=== PATIENT | female | born 1975 | race Caucasian/White ===

== ENCOUNTER 2016-11-16 19:12 | Inpatient (IN) | payer MEDICAID ==
[2016-11-16 19:57] LABS: BASO # 0.1 K/uL (0.0-0.2); BASO % 1.2 % (0.0-2.0); EOS # 0.1 K/uL (0.0-0.7); EOS % 1.1 % (0.0-4.0); HEMATOCRIT 22.1 % (34.0-47.0); LYMPH # 1.8 K/uL (1.0-4.3); MEAN CELL VOLUME 54.8 fL (81.0-99.0); MEAN CORPUSCULAR HEMOGLOBIN 14.9 pg (27.0-31.0); MEAN CORPUSCULAR HGB CONC 27.3 g/dL (33.0-37.0); MEAN PLATELET VOLUME 8.7 fL (7.2-11.7); MONO # 0.5 K/uL (0.0-0.8); MONO % 5.4 % (0.0-10.0); NRBC % 0.2 % (0.0-2.0); RED CELL DISTRIBUTION WIDTH 21.9 % (11.5-14.5); WHITE BLOOD COUNT 9.2 K/uL (4.8-10.8)
[2016-11-16 20:06] LABS: CHLORIDE 99 mmol/L (98-107)
[2016-11-16 20:07] LABS: POTASSIUM 3.9 mmol/L (3.6-5.2); SODIUM 139 mmol/L (132-148)
[2016-11-16 20:09] LABS: ALB/GLOB RATIO 1.2 (1.0-2.1); ALKALINE PHOSPHATASE 88 U/L (38-126); ALT/SGPT 48 U/L (9-52); AST/SGOT 32 U/L (14-36); BILIRUBIN,TOTAL 0.6 mg/dL (0.2-1.3); BLOOD UREA NITROGEN 12 mg/dL (7-17); CALCIUM 8.8 mg/dl (8.6-10.4); CARBON DIOXIDE 27 mmol/L (22-30); GFR AFRICAN-AMERICAN > 60; GLUCOSE,RANDOM 149 mg/dL (65-105); TOTAL PROTEIN 7.4 g/dL (6.3-8.3)
[2016-11-16 20:10] LABS: MAGNESIUM 1.8 mg/dL (1.6-2.3)
--- NOTE | 2016-11-16 20:14 | C.PDOC ---
Time Seen by Provider: 11/16/16 19:30 Chief Complaint (Nursing): Dizziness/Lightheaded History Per: Patient Onset/Duration Of Symptoms: Days (3) Current Symptoms Are (Timing): Still Present Current Symptoms: Generalized weakness Associated Symptoms Preceding Syncopal Episode: Lightheadedness, Worse With Standing Possible Causative Factor(s): Lightheaded W/Exertion Fall Associated With With Symptoms: No Severity: Moderate Additional History Per: Prior Records - Symptoms Of CVA Current Coumadin Use?: No Recent Head Trauma: No Past Medical History Reviewed: Historical Data, Nursing Documentation, Vital Signs Vital Signs: Last Vital Signs Temp 98.3 F 11/16/16 19:14 Pulse 97 H 11/16/16 19:40 Resp 20 11/16/16 19:40 BP 132/72 11/16/16 19:40 Pulse Ox 100 11/16/16 20:32 - Medical History PMH: Anemia, HTN, Mitral Valve Prolapse Other PMH: Marfan Syndrome Surgical History: Back Surgery (for Scoliosis), Cholecystectomy Other Surgeries: Hysterectomy - [facility] Procedures PACKED CELL TRANSFUSION (12/30/14) TRANSFUSE NONAUT RED BLOOD CELLS IN PERIPH VEIN, PERC (05/20/15) Family History: States: Unknown Family Hx - Social History Hx Tobacco Use: No Hx Alcohol Use: No Hx Substance Use: No - Immunization History Hx Tetanus Toxoid Vaccination: No Hx Influenza Vaccination: Yes Hx Pneumococcal Vaccination: No Review Of Systems Except As Marked, All Systems Reviewed And Found Negative. Constitutional: Positive for: Weakness, Malaise. Negative for: Fever Cardiovascular: Positive for: Light Headedness. Negative for: Chest Pain Respiratory: Positive for: SOB with Excertion Gastrointestinal: Positive for: Nausea. Negative for: Vomiting, Diarrhea, Melena, Hematochezia, Hematemesis Genitourinary: Negative for: Dysuria, Vaginal Bleeding Musculoskeletal: Negative for: Neck Pain Skin: Negative for: Rash Neurological: Negative for: Weakness, Numbness Physical Exam - Physical Exam Appears: No Acute Distress Skin: Warm, Dry, Pale Head: Atraumatic, Normacephalic Eye(s): bilateral: PERRL, EOMI, Conjunctiva Pale Oral Mucosa: Moist Neck: Normal ROM, Supple Cardiovascular: Rhythm Regular Respiratory: Normal Breath Sounds, No Accessory Muscle Use Gastrointestinal/Abdominal: Soft, No Tenderness Rectal: Heme Negative, No Mass, No Tenderness Back: No CVA Tenderness, Other (Scoliosis) Extremity: Normal ROM, No Pedal Edema, No Calf Tenderness Neurological/Psych: Oriented x3, Normal Motor, Normal Sensation ED Course And Treatment - Laboratory Results Result Diagrams: 11/16/16 19:53 11/16/16 19:53 Lab Interpretation: Abnormal Interpretation Of Abnormal: Severe anemia. ECG: Interpreted By Me, Viewed By Me ECG Rhythm: Sinus Rhythm, Nonspecific Changes Rate From EC O2 Sat by Pulse Oximetry: 100 Pulse Ox Interpretation: Normal - Radiology CXR: Interpreted by Me, Viewed By Me CXR Interpretation: Yes: No Acute Disease Disposition Discussed With : Hardeep Gongora Comment: He accepted pt on his service and gave admitting orders to the nurse. Doctor Will See Patient In The: Hospital Counseled Patient/Family Regarding: Studies Performed, Diagnosis - Disposition Disposition: HOSPITALIZED Disposition Time: 20:39 Condition: FAIR - Clinical Impression Clinical Impression: Symptomatic anemia
[2016-11-16 20:27] LABS: INR 1.1
[2016-11-16 20:32] LABS: FREE T4 0.86 ng/dL (0.78-2.19)
[2016-11-16 20:46] LABS: THYROID STIMULATING HORMONE 1.89 mIU/L (0.46-4.68)
[2016-11-16] MEDS ORDERED: Oxycodone/Acetaminophen 5/325 mg Tab PO PRN (20:46)
[2016-11-16 22:24] VITALS: RESP 20
--- NOTE | 2016-11-17 08:25 | RAD ---
PROCEDURE: CHEST RADIOGRAPH, 1 VIEW HISTORY: SOB COMPARISON: Chest radiographs 12/30/2014 FINDINGS: LUNGS: Clear. PLEURA: No pneumothorax or pleural fluid seen. CARDIOVASCULAR: Normal. OSSEOUS STRUCTURES: Scoliotic thoracic spinal deformity appears stable including a solitary stabilizing posterior donny. VISUALIZED UPPER ABDOMEN: Normal. OTHER FINDINGS: None. IMPRESSION: No acute cardiopulmonary is appreciated or significant interval change.
[2016-11-17] MEDS: Ferric Sodium Gluconat Complex 62.5 mg/5 ml Vial IVPB SCH (09:52)
[2016-11-17] MEDS: Pantoprazole 40 mg EC Tab PO SCH (09:53)
[2016-11-17] MEDS ORDERED: Pantoprazole 40 mg EC Tab PO SCH (10:00)
[2016-11-17 11:06] LABS: BASO # 0.1 K/uL (0.0-0.2); BASO % 0.6 % (0.0-2.0); EOS # 0.1 K/uL (0.0-0.7); EOS % 0.8 % (0.0-4.0); LYMPH # 1.9 K/uL (1.0-4.3); LYMPH % 22.7 % (20.0-40.0); MEAN CORPUSCULAR HEMOGLOBIN 17.7 pg (27.0-31.0); MEAN CORPUSCULAR HGB CONC 29.6 g/dL (33.0-37.0); MEAN PLATELET VOLUME 8.5 fL (7.2-11.7); MONO # 0.5 K/uL (0.0-0.8); MONO % 5.9 % (0.0-10.0); NRBC % 0.2 % (0.0-2.0); RED CELL DISTRIBUTION WIDTH 28.9 % (11.5-14.5); WHITE BLOOD COUNT 8.5 K/uL (4.8-10.8)
[2016-11-17 11:09] LABS: MEAN CELL VOLUME 59.7 fL (81.0-99.0)
[2016-11-17 11:11] LABS: CHLORIDE 100 mmol/L (98-107); SODIUM 136 mmol/L (132-148)
[2016-11-17 11:13] LABS: AST/SGOT 25 U/L (14-36); BILIRUBIN,TOTAL 0.7 mg/dL (0.2-1.3); CARBON DIOXIDE 25 mmol/L (22-30); GFR AFRICAN-AMERICAN > 60
[2016-11-17 11:14] LABS: ALB/GLOB RATIO 1.1 (1.0-2.1); ALKALINE PHOSPHATASE 80 U/L (38-126); ALT/SGPT 41 U/L (9-52); BLOOD UREA NITROGEN 11 mg/dL (7-17); CALCIUM 8.5 mg/dl (8.6-10.4); GLUCOSE,RANDOM 96 mg/dL (65-105); TOTAL PROTEIN 6.8 g/dL (6.3-8.3)
--- NOTE | 2016-11-17 11:19 | CP.PCM.PN ---
Subjective - Date & Time of Evaluation Date of Evaluation: 11/17/16 Time of Evaluation: 07:10 - Subjective Subjective: PGY-[address] Gongora Patient see and examined at bedside. Patient received 2 units of PRBC overnight , stating to be feel better than when she first came in. Patient is tolerating diet well. She denies having headache, dizziness, fever, chills, shortness of breath, chest pain, nausea, vomiting, bloody BM, or hematuria. Objective - Vital Signs/Intake and Output Vital Signs (last 24 hours): Temp Pulse Resp BP Pulse Ox 98.1 F 88 20 138/72 96 11/17/16 08:25 11/17/16 08:25 11/17/16 08:25 11/17/16 08:25 11/17/16 08:25 Intake and Output: 11/17/16 11/17/16 06:59 18:59 Intake Total 1175 Balance 1175 - Medications Medications: Current Medications Ferric Sodium Gluconate Complex (Ferrlecit) 125 mg IVPB DAILY [facility] Stop: 11/25/16 10:01 Last Admin: 11/17/16 09:52 Dose: 125 mg Metoprolol Tartrate (Lopressor) 50 mg PO BID [facility] Oxycodone/Acetaminophen (Percocet 5/325 Mg Tab) 1 tab PO Q4 PRN PRN Reason: Pain, moderate (4-7) Stop: 11/19/16 20:47 Pantoprazole Sodium (Protonix Ec Tab) 40 mg PO DAILY [facility] Last Admin: 11/17/16 09:53 Dose: 40 mg - Labs Labs: 11/17/16 10:50 11/17/16 10:50 PT 12.8 SECONDS (9.7-12.2) H 11/16/16 20:09 INR 1.1 11/16/16 20:09 APTT 25 SECONDS (21-34) 11/16/16 20:09 - Constitutional Appears: Well, Non-toxic, No Acute Distress - Head Exam Head Exam: ATRAUMATIC, NORMAL INSPECTION - Eye Exam Eye Exam: Normal appearance, PERRL Pupil Exam: PERRL - Neck Exam Neck Exam: Normal Inspection - Respiratory Exam Respiratory Exam: Clear to Ausculation Bilateral, NORMAL BREATHING PATTERN. absent: Wheezes, Respiratory Distress - Cardiovascular Exam Cardiovascular Exam: REGULAR RHYTHM, +S1, +S2 - GI/Abdominal Exam GI & Abdominal Exam: Soft, Normal Bowel Sounds. absent: Tenderness - Extremities Exam Extremities Exam: Normal Capillary Refill - Neurological Exam Neurological Exam: Alert, Awake, Oriented x3 - Psychiatric Exam Psychiatric exam: Normal Affect, Normal Mood - Skin Skin Exam: Normal Color, Warm Assessment and Plan - Assessment and Plan (Free Text) Assessment: Anemia -Heme/onc consult, Dr. Roberson help appreciated -s/p 2 units of PRBC transfusion -Hgb 7.7 -Occult blood stool negative -Pending iron studies, retic count, protein electrophresis, UA -Continue Ferrlecit -Monitor vitals -Follow up CBC HTN -Metoprolol 50mg po BID Prophylactic measures -Protonix -SCD Case discussed with Dr. Gongora. Management per Dr. Gongora.
[2016-11-17 12:22] LABS: FOLATE 7.4 ng/mL
--- NOTE | 2016-11-17 13:53 | CP.PCM.CON ---
<Vince Alvarenga - Last Filed: 11/17/16 14:09> History of Present Illness - History of Present Illness History of Present Illness: PGY3 on heme/onc Dr. Roberson service: 41F PMHx Marfan's syndrome, scoliosis, MVP, aortic valve dilation, acid reflux and anemia presented due to fatigue and lightheadedness. Patient has history of menorrhagia secondary to fibroids, and had hysterectomy on 04/2016. Patient also had unremarkable EGD/colonoscopy in 2015. Currently s/p 2U pRBC transfusion and has no complaints at the moment. Patient up to date with mammogram. PMHx: see above PSHx: hysterectomy 04/2016 FMHx: mother has cervical CA, aunt has breast CA Social: denied ETOH, drugs or tobacco NKDA Review of Systems - Constitutional Constitutional: Weakness - EENT Eyes: absent: Loss of Vision Nose/Mouth/Throat: absent: Neck Pain - Breasts Breasts: absent: Pain, Swelling - Cardiovascular Cardiovascular: absent: Chest Pain, Dyspnea, Syncope - Respiratory Respiratory: absent: Dyspnea - Gastrointestinal Gastrointestinal: absent: Abdominal Pain, Constipation, Hematemesis, Vomiting - Genitourinary Genitourinary: absent: Dysuria - Integumentary Integumentary: absent: Dry Skin - Neurological Neurological: absent: Weakness Past Patient History - Infectious Disease Hx of Infectious Diseases: None - Past Medical History & Family History Past Medical History?: Yes - Past Social History Smoking Status: Former Smoker - CARDIAC Hx Heart Attack: Yes Hx Heart Murmur: Yes Hx Hypertension: Yes Hx Mitral Valve Prolapse: Yes - PULMONARY Hx Respiratory Disorders: No Hx Sleep Apnea: Yes - NEUROLOGICAL Hx Neurological Disorder: No - HEENT Hx HEENT Problems: No - ENDOCRINE/METABOLIC Hx Endocrine Disorders: Yes Other/Comment: Marfan's syndrome - HEMATOLOGICAL/ONCOLOGICAL Hx Anemia: Yes - INTEGUMENTARY Hx Dermatological Problems: No - MUSCULOSKELETAL/RHEUMATOLOGICAL Hx Musculoskeletal Disorders: Yes Hx Falls: Yes (2016) Other/Comment: scoliosis - GASTROINTESTINAL Hx Gastrointestinal Disorders: Yes Hx Gastroesophageal Reflux: Yes - GENITOURINARY/GYNECOLOGICAL Hx Genitourinary Disorders: No - PSYCHIATRIC Hx Substance Use: No - SURGICAL HISTORY Hx Cholecystectomy: Yes Hx Hysterectomy: Yes - ANESTHESIA Hx Anesthesia: Yes Hx Anesthesia Reactions: No Meds Allergies/Adverse Reactions: Allergies Allergy/AdvReac Type Severity Reaction Status Date / Time No Known Allergies Allergy Verified 05/20/15 15:33 - Medications Medications: Current Medications Ferric Sodium Gluconate Complex (Ferrlecit) 125 mg IVPB DAILY [facility] Stop: 11/25/16 10:01 Last Admin: 11/17/16 09:52 Dose: 125 mg Metoprolol Tartrate (Lopressor) 50 mg PO BID [facility] Oxycodone/Acetaminophen (Percocet 5/325 Mg Tab) 1 tab PO Q4 PRN PRN Reason: Pain, moderate (4-7) Stop: 11/19/16 20:47 Pantoprazole Sodium (Protonix Ec Tab) 40 mg PO DAILY [facility] Last Admin: 11/17/16 09:53 Dose: 40 mg Physical Exam - Constitutional Appears: Non-toxic, No Acute Distress - Head Exam Head Exam: NORMAL INSPECTION, NORMOCEPHALIC - Eye Exam Eye Exam: Normal appearance Pupil Exam: NORMAL ACCOMODATION - ENT Exam ENT Exam: Mucous Membranes Moist - Respiratory Exam Respiratory Exam: Clear to Auscultation Bilateral, NORMAL BREATHING PATTERN - Cardiovascular Exam Cardiovascular Exam: REGULAR RHYTHM, +S1, +S2. absent: Gallop, Rubs - GI/Abdominal Exam GI & Abdominal Exam: Normal Bowel Sounds - Neurological Exam Neurological exam: Alert, Oriented x3 - Psychiatric Exam Psychiatric exam: Normal Mood Results - Vital Signs Recent Vital Signs: Last Vital Signs Temp 98.1 F 11/17/16 08:25 Pulse 88 11/17/16 08:25 Resp 20 11/17/16 08:25 BP 138/72 11/17/16 08:25 Pulse Ox 96 11/17/16 08:25 - Labs Result Diagrams: 11/17/16 10:50 11/17/16 10:50 Labs: Laboratory Results - last 24 hr 11/17/16 11/17/16 11/17/16 10:50 10:50 10:50 WBC 8.5 RBC 4.35 Hgb 7.7 L Hct 26.0 L MCV 59.7 L D MCH 17.7 L MCHC 29.6 L RDW 28.9 H Plt Count 200 MPV 8.5 Neut % (Auto) 70.0 Lymph % (Auto) 22.7 Routt % (Auto) 5.9 Eos % (Auto) 0.8 Baso % (Auto) 0.6 Neut # 5.9 Lymph # 1.9 Routt # 0.5 Eos # 0.1 Baso # 0.1 Retic Count 3.0 H Sodium 136 Potassium 4.0 Chloride 100 Carbon Dioxide 25 Anion Gap 15 BUN 11 Creatinine 0.5 L Est GFR ( Amer) > 60 Est GFR (Non-Af Amer) > 60 Random Glucose 96 Calcium 8.5 L Ferritin 3.9 Total Bilirubin 0.7 AST 25 ALT 41 Alkaline Phosphatase 80 Total Protein 6.8 Albumin 3.6 Globulin 3.2 Albumin/Globulin Ratio 1.1 Vitamin B12 492 Folate 7.4 Assessment & Plan - Assessment and Plan (Free Text) Assessment: Anemia Likely secondary to iron deficiency anemia, with history of heavy menstruation. S/P 2U pRBC transfusion. Continue IV Ferrlecit. Will transfuse another unit today. F/U the rest of anemia workup. Continue monitoring. <Sumanth Roberson - Last Filed: 11/18/16 19:34> Results - Vital Signs Recent Vital Signs: Last Vital Signs Temp 98.4 F 11/18/16 01:43 Pulse 70 11/18/16 01:43 Resp 20 11/18/16 01:43 BP 132/87 11/18/16 01:43 Pulse Ox 97 11/18/16 01:43 - Labs Result Diagrams: 11/18/16 07:04 11/17/16 10:50 Labs: Laboratory Results - last 24 hr 11/17/16 11/18/16 13:46 07:04 WBC 8.9 RBC 5.02 Hgb 9.1 L Hct 30.6 L MCV 61.0 L MCH 18.1 L MCHC 29.6 L RDW 29.6 H Plt Count 203 MPV 9.1 Neut % (Auto) 68.8 Lymph % (Auto) 23.9 Routt % (Auto) 5.4 Eos % (Auto) 1.5 Baso % (Auto) 0.4 Neut # 6.1 Lymph # 2.1 Routt # 0.5 Eos # 0.1 Baso # 0.0 Total Protein (PEP) 7.0 Assessment & Plan - Assessment and Plan (Free Text) Assessment: Pt seen and examined, agree with residents consult with addition. 41 year old female with a history of uterine fibroids s/p hysterectomy, admitted with symptomatic anemia. Work up consistent with iron deficiency. Agree with transfusion support and will start IV iron. Rule out occult GI blood loss. Thank you for this interesting consult.
[2016-11-17 14:07] LABS: IRON 62 ug/dL (37-170)
[2016-11-17 16:05] VITALS: O2SAT 97
[2016-11-17 20:38] VITALS: PULSE 70
--- NOTE | 2016-11-17 22:27 | HP ---
HISTORY OF PRESENT ILLNESS: A 41-year-old female in the hospital with complaint of weakness, fatigue, tiredness. The patient was found to have severe anemia. History of anemia in the past, hysterectomy. PHYSICAL EXAMINATION: GENERAL: The patient is awake, alert, and oriented. VITAL SIGNS: Temperature 98, pulse 90. HEENT: Within normal limits. NECK: Supple. CHEST: Symmetrical. HEART: Regular. ABDOMEN: Soft. EXTREMITIES: No edema. IMPRESSION: Anemia. The patient will get blood transfusion and hematology consult. Hardeep Gongora MD
[2016-11-18 01:43] VITALS: BP 132/87; TEMP 98.4
[2016-11-18 07:16] LABS: EOS # 0.1 K/uL (0.0-0.7); MEAN CORPUSCULAR HEMOGLOBIN 18.1 pg (27.0-31.0); MONO # 0.5 K/uL (0.0-0.8); NRBC % 0.2 % (0.0-2.0)
[2016-11-18 07:34] LABS: BASO % 0.4 % (0.0-2.0); EOS % 1.5 % (0.0-4.0); HEMATOCRIT 30.6 % (34.0-47.0); LYMPH # 2.1 K/uL (1.0-4.3); LYMPH % 23.9 % (20.0-40.0); MEAN CORPUSCULAR HGB CONC 29.6 g/dL (33.0-37.0); MEAN PLATELET VOLUME 9.1 fL (7.2-11.7); MONO % 5.4 % (0.0-10.0); RED CELL DISTRIBUTION WIDTH 29.6 % (11.5-14.5); WHITE BLOOD COUNT 8.9 K/uL (4.8-10.8)
[2016-11-18] MEDS: Pantoprazole 40 mg EC Tab PO SCH (10:04)
[2016-11-18] MEDS: Ferric Sodium Gluconat Complex 62.5 mg/5 ml Vial IVPB SCH (10:04)
--- NOTE | 2016-11-18 10:27 | CP.PCM.PN ---
Subjective - Date & Time of Evaluation Date of Evaluation: 11/18/16 Time of Evaluation: 10:26 - Subjective Subjective: PT SEEN BY DR. RYAN DURING ROUNDS. PER DR. RYAN, D/C PT HOME TODAY. PT TO CONTINUE FESOL AT HOME--ALREADY TAKING AT HOME. TO F/U WITH DR. RYAN AND DR. PEREZ IN THEIR OFFICES WITHIN 2 WEEKS. NO FURTHER ORDERS. Objective - Vital Signs/Intake and Output Vital Signs (last 24 hours): Temp Pulse Resp BP Pulse Ox 98.4 F 70 20 132/87 97 11/18/16 01:43 11/18/16 01:43 11/18/16 01:43 11/18/16 01:43 11/18/16 01:43 Intake and Output: 11/18/16 11/18/16 06:59 18:59 Intake Total 1030 Balance 1030 - Medications Medications: Current Medications Ferric Sodium Gluconate Complex (Ferrlecit) 125 mg IVPB DAILY [facility] Stop: 11/25/16 10:01 Last Admin: 11/18/16 10:04 Dose: 125 mg Metoprolol Tartrate (Lopressor) 50 mg PO BID [facility] Last Admin: 11/18/16 10:04 Dose: 50 mg Oxycodone/Acetaminophen (Percocet 5/325 Mg Tab) 1 tab PO Q4 PRN PRN Reason: Pain, moderate (4-7) Stop: 11/19/16 20:47 Pantoprazole Sodium (Protonix Ec Tab) 40 mg PO DAILY [facility] Last Admin: 11/18/16 10:04 Dose: 40 mg - Labs Labs: 11/18/16 07:04 11/17/16 10:50 PT 12.8 SECONDS (9.7-12.2) H 11/16/16 20:09 INR 1.1 11/16/16 20:09 APTT 25 SECONDS (21-34) 11/16/16 20:09
[2016-11-20 11:03] LABS: BETA 1 GLOBULIN 0.5 g/dL (0.4-0.6); BETA 2 GLOBULIN 0.5 g/dL (0.2-0.5); GAMMA GLOBULIN 1.3 g/dL (0.8-1.7)
--- NOTE | 2016-11-28 20:05 | CARD ---
APPROVED REPORT EKG Measurement Heart [id number] <Conclusion> Normal sinus rhythm T wave abnormality, consider anterior ischemia Prolonged QT Abnormal ECG
== END 2016-11-18 02:45 | disposition home or self-care (01) | DRG 395 ==
LOC: C.ER 19:12 → C.9E 20:41 → C.3T 21:06
PROVIDERS: ADMIT Internal Medicine Pulmonary Disease; ATTEND Internal Medicine Pulmonary Disease
PROC: 30233N1 Transfusion of Nonautologous Red Blood Cells into Peripheral Vein, Percutaneous Approach (ICD-10-PCS; principal; 2016-11-16)
DX: D50.9 Iron deficiency anemia, unspecified (principal); Q87.40 Marfan syndrome, unspecified; R55 Syncope and collapse; M41.9 Scoliosis, unspecified; Z80.8 Family history of malignant neoplasm of other organs or systems; Z87.891 Personal history of nicotine dependence; N92.1 Excessive and frequent menstruation with irregular cycle; I10 Essential (primary) hypertension; G47.30 Sleep apnea, unspecified

== ENCOUNTER 2018-01-11 12:46 | Inpatient (IN) | payer MEDICAID, OTHER ==
--- NOTE | 2018-01-11 14:27 | RAD ---
HISTORY: Shortness of breath COMPARISON: 11/16/2016. TECHNIQUE: Chest PA and lateral FINDINGS: LINES AND TUBES: None. LUNG AND PLEURA: The lungs are well inflated and clear. No pleural effusion or pneumothorax. HEART AND MEDIASTINUM: The heart is not enlarged. The hilar and mediastinal contours are within normal limits. SKELETAL STRUCTURES: There is severe scoliosis in the thoracolumbar spine and posterior spinal fixation with Wright donny. VISUALIZED UPPER ABDOMEN: Normal. OTHER FINDINGS: None. IMPRESSION: No active pulmonary disease.
[2018-01-11 14:33] LABS: SQUAMOUS EPITHIAL 1 /hpf (0-5); URINE BACTERIA RARE (<OCC); URINE BILIRUBIN NEGATIVE (NEGATIVE); URINE BLOOD NEGATIVE (NEGATIVE); URINE CLARITY Clear (Clear); URINE COLOR Yellow (YELLOW); URINE GLUCOSE (UA) NORMAL (Normal); URINE LEUKOCYTE ESTERASE NEG Leu/uL (Negative); URINE PROTEIN NEGATIVE (NEGATIVE); URINE UROBILINOGEN NORMAL mg/dL (0.2-1.0)
[2018-01-11 14:57] LABS: BASO % 0.6 % (0.0-2.0); EOS # 0.1 K/uL (0.0-0.7); EOS % 1.1 % (0.0-4.0); LYMPH # 1.9 K/uL (1.0-4.3); LYMPH % 24.8 % (20.0-40.0); MEAN CORPUSCULAR HEMOGLOBIN 15.9 pg (27.0-31.0); MEAN CORPUSCULAR HGB CONC 28.5 g/dL (33.0-37.0); MEAN PLATELET VOLUME 9.3 fL (7.2-11.7); MONO # 0.5 K/uL (0.0-0.8); MONO % 5.9 % (0.0-10.0); NEUT # 5.2 K/uL (1.8-7.0); NEUT % 67.6 % (50.0-75.0); RBC 4.7 Mil/uL (3.80-5.20); RED CELL DISTRIBUTION WIDTH 20.6 % (11.5-14.5); WHITE BLOOD COUNT 7.7 K/uL (4.8-10.8)
[2018-01-11 14:58] LABS: HEMOGLOBIN 7.5 g/dL (11.0-16.0)
[2018-01-11 15:00] LABS: INR 1.2; PROTHROMBIN TIME 12.6 SECONDS (9.7-12.2)
[2018-01-11 15:01] LABS: BARBITURATES, UR NEGATIVE (NEGATIVE); OPIATES, UR NEGATIVE (NEGATIVE); PHENCYCLIDINE, UR NEGATIVE (NEGATIVE)
[2018-01-11 15:19] LABS: BENZODIAZEPINES, UR NEGATIVE (NEGATIVE)
[2018-01-11 15:23] LABS: ALB/GLOB RATIO 1.3 (1.0-2.1); ALBUMIN 4.3 g/dL (3.5-5.0); ALT/SGPT 80 U/L (9-52); AST/SGOT 58 U/L (14-36); BLOOD UREA NITROGEN 12 mg/dL (7-17); CALCIUM 9.5 mg/dl (8.6-10.4); GFR NON-AFRICAN AMERICAN > 60
[2018-01-11 15:28] LABS: B-TYPE NATRIURETIC PEPTIDE 78.4 pg/mL (0-450)
[2018-01-11] MEDS: Sodium Chloride 0.45% 1,000 ML IV SCH (16:55)
--- NOTE | 2018-01-11 17:41 | CP.PCM.HP ---
<Henrik Soto - Last Filed: 01/11/18 20:36> History of Present Illness - History of Present Illness History of Present Illness: Medicine History and Physical for Hospitalist Service Henrik Soto DO PGY-1, Web Analytics Specialist 42F PMhx chronic anemia (since 2006), Marfan syndrome (diagnosed at age 8), sleep apnea, Mitral valve prolapse, presents with weakness and fatigue x 3 days. Also reports melena and abd pain that has been worsening since this am. Pt does not follow with PMD currently because she does not have insurance, currently has PMD in [place] where she states she follows up when she visits. Also reports near-syncopal episodes that have been worsening, states it might be due to her chronic anemia. Reports that she follows with Dr. Roberson outpatient for IV iron infusions, last infusion 1 mo prior, currently on PO iron tablets daily. Reports hx of 23 transfusions in the past (last one was 1 y ago as per pt), denies any hx of prior transfusion reactions. Reports [place] Chau ([place] [facility] [place]. States she last had video endoscopy done in Apr 2017 which demonstrated ulcers. Reports colonoscopy last in 2016 which showed multiple polyps but was negative for cancer. Had hysterectomy in 2017 2/2 fibroids causing her chronic anemia, but states the problem did not go away after that. Reports she no longer gets menstrual periods. Denies fever, chills, chest pain, sob, n/v/d/c, urinary complaints, or other symptoms. PMHx: as listed above PSurgHx: Hysterectomy in 2017, Cholecystectomy in 2015 Allergies: NKDA Home meds: Toprol XL 50 mg daily, Ferrous sulfate daily, Protonix PO daily Fam hx: Mom - cervical cancer; Dad - no medical problems; son - has Marfan syndrome Soc Hx: denies smoking, alcohol, or illicit drug use; lives at home with PMD: none Present on Admission - Present on Admission Any Indicators Present on Admission: No Review of Systems - Constitutional Constitutional: Fatigue, Malaise. absent: Chills, Fever, Weight Gain, Weight Loss - EENT Eyes: absent: Blurred Vision, Change in Vision - Cardiovascular Cardiovascular: absent: Chest Pain, Dyspnea on Exertion - Respiratory Respiratory: absent: Cough, Hemoptysis, Dyspnea on Exertion, Wheezing - Gastrointestinal Gastrointestinal: Abdominal Pain, Change in Stool Character, Heartburn, Melena. absent: Constipation, Diarrhea, Early Satiety, Hematemesis, Nausea, Vomiting - Hematologic/Lymphatic Hematologic: absent: Easy Bleeding, Easy Bruising, Lymphadenopathy Past Patient History - Infectious Disease Hx of Infectious Diseases: None - Past Medical History & Family History Past Medical History?: Yes - Past Social History Smoking Status: Former Smoker - CARDIAC Hx Heart Attack: Yes Hx Heart Murmur: Yes Hx Hypertension: Yes Hx Mitral Valve Prolapse: Yes - PULMONARY Hx Respiratory Disorders: No Hx Sleep Apnea: Yes - NEUROLOGICAL Hx Neurological Disorder: No - HEENT Hx HEENT Problems: No - ENDOCRINE/METABOLIC Hx Endocrine Disorders: Yes Other/Comment: Marfan's syndrome - HEMATOLOGICAL/ONCOLOGICAL Hx Anemia: Yes - INTEGUMENTARY Hx Dermatological Problems: No - MUSCULOSKELETAL/RHEUMATOLOGICAL Hx Musculoskeletal Disorders: Yes Hx Falls: Yes (2016) Other/Comment: scoliosis - GASTROINTESTINAL Hx Gastrointestinal Disorders: Yes Hx Gastroesophageal Reflux: Yes - GENITOURINARY/GYNECOLOGICAL Hx Genitourinary Disorders: No - PSYCHIATRIC Hx Psychophysiologic Disorder: No Hx Substance Use: No - SURGICAL HISTORY Hx Cholecystectomy: Yes Hx Hysterectomy: Yes - ANESTHESIA Hx Anesthesia: Yes Hx Anesthesia Reactions: No Meds Allergies/Adverse Reactions: Allergies Allergy/AdvReac Type Severity Reaction Status Date / Time No Known Allergies Allergy Verified 01/11/18 13:27 Physical Exam - Constitutional Appears: Non-toxic, No Acute Distress Additional comments: Marfanoid habitus - Eye Exam Eye Exam: EOMI, PERRL - ENT Exam ENT Exam: Mucous Membranes Moist, Normal Oropharynx - Neck Exam Neck exam: Positive for: Full Rom, Normal Inspection. Negative for: Lymphadenopathy, Tenderness - Respiratory Exam Respiratory Exam: Clear to Auscultation Bilateral, NORMAL BREATHING PATTERN. absent: Rales, Rhonchi, Wheezes - Cardiovascular Exam Cardiovascular Exam: +S1, +S2 Additional comments: Click auscultated at apex of heart - GI/Abdominal Exam GI & Abdominal Exam: Normal Bowel Sounds, Soft, Tenderness. absent: Distended, Firm, Guarding, Organomegaly, Rebound, Rigid Additional comments: Tenderness to LLQ on exam - Extremities Exam Extremities exam: Positive for: full ROM, normal capillary refill, normal inspec tion, pedal pulses present - Back Exam Back exam: FULL ROM, NORMAL INSPECTION - Neurological Exam Neurological exam: Alert, CN II-XII Intact, Normal Gait, Oriented x3, Reflexes Normal - Psychiatric Exam Psychiatric exam: Normal Affect, Normal Mood - Skin Skin Exam: Dry, Intact, Normal Color, Warm Results - Vital Signs Recent Vital Signs: Last Vital Signs Temp 98.3 F 01/11/18 16:38 Pulse 82 01/11/18 16:38 Resp 18 01/11/18 16:22 BP 138/82 01/11/18 16:38 Pulse Ox 96 01/11/18 16:38 - Labs Result Diagrams: 01/11/18 14:42 01/11/18 14:42 Labs: Laboratory Results - last 24 hr 01/11/18 01/11/18 01/11/18 13:24 14:21 14:21 WBC RBC Hgb Hct MCV MCH MCHC RDW Plt Count MPV Neut % (Auto) Lymph % (Auto) Cecil % (Auto) Eos % (Auto) Baso % (Auto) Neut # (Auto) Lymph # (Auto) Cecil # (Auto) Eos # (Auto) Baso # (Auto) Differential Comment PT INR APTT Sodium Potassium Chloride Carbon Dioxide Anion Gap BUN Creatinine Est GFR ( Amer) Est GFR (Non-Af Amer) POC Glucose (mg/dL) 211 H Random Glucose Calcium Total Bilirubin AST ALT Alkaline Phosphatase Troponin I NT-Pro-B Natriuret Pep Total Protein Albumin Globulin Albumin/Globulin Ratio Urine Color Yellow Urine Clarity Clear Urine pH 5.0 Ur Specific [place] 1.024 Urine Protein Negative Urine Glucose (UA) Normal Urine Ketones Negative Urine Blood Negative Urine Nitrate Negative Urine Bilirubin Negative Urine Urobilinogen Normal Ur Leukocyte Esterase Neg Urine WBC (Auto) 1 Urine RBC (Auto) 2 Ur Squamous Epith Cells 1 Urine Bacteria Rare Urine HCG, Qual Stool Occult Blood Urine Opiates Screen Negative Urine Methadone Screen Negative Ur Barbiturates Screen Negative Ur Phencyclidine Scrn Negative Ur Amphetamines Screen Negative U Benzodiazepines Scrn Negative U Oth Cocaine Metabols Negative U Cannabinoids Screen Negative Blood Type Antibody Screen 01/11/18 01/11/18 01/11/18 14:42 14:42 14:42 WBC 7.7 RBC 4.70 Hgb 7.5 L Hct 26.3 L MCV 56.0 L D MCH 15.9 L MCHC 28.5 L RDW 20.6 H Plt Count 248 MPV 9.3 Neut % (Auto) 67.6 Lymph % (Auto) 24.8 Cecil % (Auto) 5.9 Eos % (Auto) 1.1 Baso % (Auto) 0.6 Neut # (Auto) 5.2 Lymph # (Auto) 1.9 Cecil # (Auto) 0.5 Eos # (Auto) 0.1 Baso # (Auto) 0.0 Differential Comment PT 12.6 H INR 1.2 APTT 25 Sodium 139 Potassium 4.2 Chloride 101 Carbon Dioxide 25 Anion Gap 17 BUN 12 Creatinine 0.5 L Est GFR ( Amer) > 60 Est GFR (Non-Af Amer) > 60 POC Glucose (mg/dL) Random Glucose 148 H Calcium 9.5 Total Bilirubin 0.4 AST 58 H ALT 80 H D Alkaline Phosphatase 110 Troponin I < 0.0120 NT-Pro-B Natriuret Pep 78.4 Total Protein 7.6 Albumin 4.3 Globulin 3.3 Albumin/Globulin Ratio 1.3 Urine Color Urine Clarity Urine pH Ur Specific [place] Urine Protein Urine Glucose (UA) Urine Ketones Urine Blood Urine Nitrate Urine Bilirubin Urine Urobilinogen Ur Leukocyte Esterase Urine WBC (Auto) Urine RBC (Auto) Ur Squamous Epith Cells Urine Bacteria Urine HCG, Qual Stool Occult Blood Urine Opiates Screen Urine Methadone Screen Ur Barbiturates Screen Ur Phencyclidine Scrn Ur Amphetamines Screen U Benzodiazepines Scrn U Oth Cocaine Metabols U Cannabinoids Screen Blood Type Antibody Screen 01/11/18 01/11/18 01/11/18 14:42 15:35 15:35 WBC RBC Hgb Hct MCV MCH MCHC RDW Plt Count MPV Neut % (Auto) Lymph % (Auto) [place] % (Auto) Eos % (Auto) Baso % (Auto) Neut # (Auto) Lymph # (Auto) Cecil # (Auto) Eos # (Auto) Baso # (Auto) Differential Comment PT INR APTT Sodium Potassium Chloride Carbon Dioxide Anion Gap BUN Creatinine Est GFR ( Amer) Est GFR (Non-Af Amer) POC Glucose (mg/dL) Random Glucose Calcium Total Bilirubin AST ALT Alkaline Phosphatase Troponin I NT-Pro-B Natriuret Pep Total Protein Albumin Globulin Albumin/Globulin Ratio Urine Color Urine Clarity Urine pH Ur Specific [place] Urine Protein Urine Glucose (UA) Urine Ketones Urine Blood Urine Nitrate Urine Bilirubin Urine Urobilinogen Ur Leukocyte Esterase Urine WBC (Auto) Urine RBC (Auto) Ur Squamous Epith Cells Urine Bacteria Urine HCG, Qual Negative Stool Occult Blood Negative Urine Opiates Screen Urine Methadone Screen Ur Barbiturates Screen Ur Phencyclidine Scrn Ur Amphetamines Screen U Benzodiazepines Scrn U Oth Cocaine Metabols U Cannabinoids Screen Blood Type B POSITIVE Antibody Screen Negative Assessment & Plan - Assessment and Plan (Free Text) Assessment: 42F PMhx chronic anemia (since 2006), Marfan syndrome (diagnosed at age 8), sleep apnea, Mitral valve prolapse, presents with weakness and fatigue x 3 days. Pt admitted for low hemoglobin and r/o GI bleed. Plan: Chronic anemia, r/o GI bleed H/H 7.5/26.5 on admission, f/u H/H in am AST/ALT mildly elevated on admission, likely 2/2 iron overload 2/2 hx multiple transfusions and PO iron intake JALIL neg x1 BNP normal U/a, UDS neg Pt to be transfused 2 units of PRBCs, continue to monitor, blood transfusion consent obtained and in chart IVF at 125 cc/hr Modified dysphagia diet for pt c/o difficulty swallowing solid foods for the past several days, able to tolerate liquids PO Dr. Roberson (Heme/Onc) consulted, recs appreciated Dr. Greer (GI) consulted, recs appreciated Stool occult blood neg in ED CXR demonstrated no active pulmonary disease EKG ordered, f/u results C/w home med ferrous sulfate daily C/w home med Protonix daily Hx Marfan's/HTN C/w home med Toprol XL 50 mg daily Continue to monitor bps DVT ppx: SCDs GI ppx: Protonix PO Pt seen, examined with, and plan discussed with Dr. Piña, attending. Henrik Soto DO PGY-1, Web Analytics Specialist Pager #[phone] <Louis Piña - Last Filed: 01/28/18 16:31> Results - Vital Signs Recent Vital Signs: Last Vital Signs Temp 98 F 01/14/18 16:00 Pulse 73 01/14/18 16:00 Resp 20 01/14/18 16:00 BP 139/73 01/14/18 16:00 Pulse Ox 96 01/14/18 16:00 - Labs Result Diagrams: 01/14/18 06:25 01/14/18 06:25 Attending/Attestation - Attestation I have personally seen and examined this patient.: Yes I have fully participated in the care of the patient.: Yes I have reviewed all pertinent clinical information: Yes Notes (Text): 42F PMhx chronic anemia (since 2006), Marfan syndrome (diagnosed at age 8), sle ep apnea, Mitral valve prolapse, presents with weakness and fatigue x 3 days. Pt admitted for low hemoglobin and r/o GI bleed. Acute on Chronic anemia, r/o GI bleed
--- NOTE | 2018-01-11 18:09 | C.PDOC ---
History Of Present Illness 42 y/o female is sent to ED by Dr. Gongora for generalized weakness and lethargy. Pt has history of chronic anemia due to dysfunctional uterine bleeding and upper GI bleeding that requires iron infusion. Denies fever, chest pain, or other complaints. Time Seen by Provider: 01/11/18 13:57 Chief Complaint (Nursing): Weakness/Neurological Deficit History Per: Patient History/Exam Limitations: no limitations Past Medical History Reviewed: Historical Data, Nursing Documentation, Vital Signs Vital Signs: Last Vital Signs Temp 98.3 F 01/11/18 16:38 Pulse 83 01/11/18 17:37 Resp 20 01/11/18 17:37 BP 148/94 H 01/11/18 17:37 Pulse Ox 96 01/11/18 17:37 - Medical History PMH: Anemia, HTN, Mitral Valve Prolapse, Sleep Apnea Surgical History: Back Surgery (for Scoliosis), Cholecystectomy - [facility] Procedures PACKED CELL TRANSFUSION (12/30/14) TRANSFUSE NONAUT RED BLOOD CELLS IN PERIPH VEIN, PERC (11/16/16) Family History: States: Unknown Family Hx - Social History Hx Tobacco Use: No Hx Alcohol Use: No Hx Substance Use: No - Immunization History Hx Tetanus Toxoid Vaccination: No Hx Influenza Vaccination: No Hx Pneumococcal Vaccination: Yes Review Of Systems Except As Marked, All Systems Reviewed And Found Negative. Constitutional: Positive for: Weakness. Negative for: Fever, Chills Cardiovascular: Negative for: Chest Pain Respiratory: Negative for: Shortness of Breath Physical Exam - Physical Exam Appears: Non-toxic, No Acute Distress Skin: Warm, Dry, Pale Head: Atraumatic, Normacephalic Eye(s): bilateral: Normal Inspection Oral Mucosa: Moist Neck: Supple Cardiovascular: Rhythm Regular Respiratory: Normal Breath Sounds, No Rales, No Rhonchi, No Wheezing Gastrointestinal/Abdominal: Soft, No Tenderness Extremity: Normal ROM Neurological/Psych: Oriented x3, Normal Speech ED Course And Treatment - Laboratory Results Result Diagrams: 01/14/18 06:25 01/14/18 06:25 ECG: Interpreted By Me, Viewed By Me ECG Rhythm: Sinus Rhythm ECG Interpretation: No Acute Changes Interpretation Of ECG: T wave inverisons. Rate From EC O2 Sat by Pulse Oximetry: 96 Pulse Ox Interpretation: Normal Medical Decision Making Medical Decision Making: Case discussed with Dr. Young who accepts pt under his service. Disposition Doctor Will See Patient In The: Hospital Counseled Patient/Family Regarding: Studies Performed, Diagnosis - Disposition Disposition: HOSPITALIZED Disposition Time: 16:00 Condition: GOOD - Clinical Impression Clinical Impression: Anemia - Scribe Statement The provider has reviewed the documentation as recorded by the Scribe Kp All medical record entries made by the Scribe were at my direction and personally dictated by me. I have reviewed the chart and agree that the record accurately reflects my personal performance of the history, physical exam, medical decision making, and the department course for this patient. I have also personally directed, reviewed, and agree with the discharge instructions and disposition.
--- NOTE | 2018-01-11 19:28 | CP.PCM.CON ---
History of Present Illness - History of Present Illness History of Present Illness: 42 year old female with a history of dysfunctional uterine bleeding, GI ulcer dx by capsule endoscopy in April, chronic iron deficiency anemia, admitted with symptomatic anemia. The patient notes to progressive fatigue, weakness, and dizziness. She experienced dark black stools about 2 days ago. She also has the sensation of food getting stuck in her chest and abdominal pain with meals. She notes to losing her insurance and has not been able to follow up for her iron infusions. In the ER she was found to have a hgb of 7.5. She is s/p 1U PRBC and notes to feeling better. Past medical history: dysfunctional uterine bleeding, GI ulcer, chronic iron deficiency anemia Past surgical history: Denies Family history: Several member of her family with cancer; breast and gastric Social history: Former tobacco abuse Allergies: NKA Review of systems: All remaining review of systems including HEENT, cardiovascular, respiratory, gastrointestinal, genitourinary, musculoskeletal, dermatologic, neurologic, and psychiatric are negative unless mentioned in the HPI. Past Patient History - Infectious Disease Hx of Infectious Diseases: None - Past Medical History & Family History Past Medical History?: Yes - Past Social History Smoking Status: Former Smoker - CARDIAC Hx Hypertension: Yes Hx Mitral Valve Prolapse: Yes - PULMONARY Hx Sleep Apnea: Yes - NEUROLOGICAL Hx Neurological Disorder: No - HEENT Hx HEENT Problems: No - ENDOCRINE/METABOLIC Hx Endocrine Disorders: Yes Other/Comment: Marfan's syndrome - HEMATOLOGICAL/ONCOLOGICAL Hx Anemia: Yes - INTEGUMENTARY Hx Dermatological Problems: No - MUSCULOSKELETAL/RHEUMATOLOGICAL Hx Musculoskeletal Disorders: Yes Hx Falls: Yes (2016) Other/Comment: scoliosis - GASTROINTESTINAL Hx Gastrointestinal Disorders: Yes Hx Gastroesophageal Reflux: Yes - GENITOURINARY/GYNECOLOGICAL Hx Genitourinary Disorders: No - PSYCHIATRIC Hx Substance Use: No - SURGICAL HISTORY Hx Cholecystectomy: Yes - ANESTHESIA Hx Anesthesia: Yes Hx Anesthesia Reactions: No Meds Allergies/Adverse Reactions: Allergies Allergy/AdvReac Type Severity Reaction Status Date / Time No Known Allergies Allergy Verified 01/11/18 13:27 - Medications Medications: Current Medications Sodium Chloride (Sodium Chloride 0.45%) 1,000 mls @ 125 mls/hr IV .Q8H ERMA Last Admin: 01/11/18 16:55 Dose: 125 mls/hr Metoprolol Succinate (Toprol Xl) 50 mg PO DAILY [facility] Pantoprazole Sodium (Protonix Ec Tab) 40 mg PO DAILY [facility] Physical Exam - Head Exam Head Exam: ATRAUMATIC - Eye Exam Eye Exam: Normal appearance - ENT Exam ENT Exam: Mucous Membranes Dry - Respiratory Exam Respiratory Exam: NORMAL BREATHING PATTERN - Cardiovascular Exam Cardiovascular Exam: +S1, +S2 - GI/Abdominal Exam GI & Abdominal Exam: Normal Bowel Sounds - Extremities Exam Extremities exam: Positive for: normal inspection - Neurological Exam Neurological exam: Oriented x3 - Psychiatric Exam Psychiatric exam: Normal Affect, Normal Mood - Skin Skin Exam: Warm Results - Vital Signs Recent Vital Signs: Last Vital Signs Temp 97.9 F 01/11/18 18:25 Pulse 87 01/11/18 18:25 Resp 18 01/11/18 18:25 BP 135/71 01/11/18 18:25 Pulse Ox 98 01/11/18 18:25 - Labs Result Diagrams: 01/11/18 14:42 01/11/18 14:42 Labs: Laboratory Results - last 24 hr 01/11/18 01/11/18 01/11/18 13:24 14:21 14:21 WBC RBC Hgb Hct MCV MCH MCHC RDW Plt Count MPV Neut % (Auto) Lymph % (Auto) [place] % (Auto) Eos % (Auto) Baso % (Auto) Neut # (Auto) Lymph # (Auto) [place] # (Auto) Eos # (Auto) Baso # (Auto) Differential Comment PT INR APTT Sodium Potassium Chloride Carbon Dioxide Anion Gap BUN Creatinine Est GFR ( Amer) Est GFR (Non-Af Amer) POC Glucose (mg/dL) 211 H Random Glucose Calcium Total Bilirubin AST ALT Alkaline Phosphatase Troponin I NT-Pro-B Natriuret Pep Total Protein Albumin Globulin Albumin/Globulin Ratio Urine Color Yellow Urine Clarity Clear Urine pH 5.0 Ur Specific [place] 1.024 Urine Protein Negative Urine Glucose (UA) Normal Urine Ketones Negative Urine Blood Negative Urine Nitrate Negative Urine Bilirubin Negative Urine Urobilinogen Normal Ur Leukocyte Esterase Neg Urine WBC (Auto) 1 Urine RBC (Auto) 2 Ur Squamous Epith Cells 1 Urine Bacteria Rare Urine HCG, Qual Stool Occult Blood Urine Opiates Screen Negative Urine Methadone Screen Negative Ur Barbiturates Screen Negative Ur Phencyclidine Scrn Negative Ur Amphetamines Screen Negative U Benzodiazepines Scrn Negative U Oth Cocaine Metabols Negative U Cannabinoids Screen Negative Blood Type Antibody Screen 1001/11/18 01/11/18 14:42 14:42 14:42 WBC 7.7 RBC 4.70 Hgb 7.5 L Hct 26.3 L MCV 56.0 L D MCH 15.9 L MCHC 28.5 L RDW 20.6 H Plt Count 248 MPV 9.3 Neut % (Auto) 67.6 Lymph % (Auto) 24.8 [place] % (Auto) 5.9 Eos % (Auto) 1.1 Baso % (Auto) 0.6 Neut # (Auto) 5.2 Lymph # (Auto) 1.9 [place] # (Auto) 0.5 Eos # (Auto) 0.1 Baso # (Auto) 0.0 Differential Comment PT 12.6 H INR 1.2 APTT 25 Sodium 139 Potassium 4.2 Chloride 101 Carbon Dioxide 25 Anion Gap 17 BUN 12 Creatinine 0.5 L Est GFR ( Amer) > 60 Est GFR (Non-Af Amer) > 60 POC Glucose (mg/dL) Random Glucose 148 H Calcium 9.5 Total Bilirubin 0.4 AST 58 H ALT 80 H D Alkaline Phosphatase 110 Troponin I < 0.0120 NT-Pro-B Natriuret Pep 78.4 Total Protein 7.6 Albumin 4.3 Globulin 3.3 Albumin/Globulin Ratio 1.3 Urine Color Urine Clarity Urine pH Ur Specific [place] Urine Protein Urine Glucose (UA) Urine Ketones Urine Blood Urine Nitrate Urine Bilirubin Urine Urobilinogen Ur Leukocyte Esterase Urine WBC (Auto) Urine RBC (Auto) Ur Squamous Epith Cells Urine Bacteria Urine HCG, Qual Stool Occult Blood Urine Opiates Screen Urine Methadone Screen Ur Barbiturates Screen Ur Phencyclidine Scrn Ur Amphetamines Screen U Benzodiazepines Scrn U Oth Cocaine Metabols U Cannabinoids Screen Blood Type Antibody Screen 01/11/18 01/11/18 01/11/18 14:42 15:35 15:35 WBC RBC Hgb Hct MCV MCH MCHC RDW Plt Count MPV Neut % (Auto) Lymph % (Auto) [place] % (Auto) Eos % (Auto) Baso % (Auto) Neut # (Auto) Lymph # (Auto) [place] # (Auto) Eos # (Auto) Baso # (Auto) Differential Comment PT INR APTT Sodium Potassium Chloride Carbon Dioxide Anion Gap BUN Creatinine Est GFR ( Amer) Est GFR (Non-Af Amer) POC Glucose (mg/dL) Random Glucose Calcium Total Bilirubin AST ALT Alkaline Phosphatase Troponin I NT-Pro-B Natriuret Pep Total Protein Albumin Globulin Albumin/Globulin Ratio Urine Color Urine Clarity Urine pH Ur Specific [place] Urine Protein Urine Glucose (UA) Urine Ketones Urine Blood Urine Nitrate Urine Bilirubin Urine Urobilinogen Ur Leukocyte Esterase Urine WBC (Auto) Urine RBC (Auto) Ur Squamous Epith Cells Urine Bacteria Urine HCG, Qual Negative Stool Occult Blood Negative Urine Opiates Screen Urine Methadone Screen Ur Barbiturates Screen Ur Phencyclidine Scrn Ur Amphetamines Screen U Benzodiazepines Scrn U Oth Cocaine Metabols U Cannabinoids Screen Blood Type B POSITIVE Antibody Screen Negative Assessment & Plan - Assessment and Plan (Free Text) Assessment: 1. symptomatic anemia - retic count, b12, folate, ferritin to be sent - dysfunctional uterine bleeding - GI ulcer in the past with history of black stool; recommend GI evaluation - transfuse 2U PRBC today - will start on IV iron Thank you for this interesting consult.
[2018-01-12] MEDS: Sodium Chloride 0.45% 1,000 ML IV SCH ×4 (03:41→16:22)
[2018-01-12 07:08] LABS: BASO % 0.6 % (0.0-2.0); EOS # 0.1 K/uL (0.0-0.7); EOS % 1.3 % (0.0-4.0); HEMOGLOBIN 9.2 g/dL (11.0-16.0); LYMPH % 27.5 % (20.0-40.0); MEAN CORPUSCULAR HEMOGLOBIN 18.1 pg (27.0-31.0); MEAN CORPUSCULAR HGB CONC 29.8 g/dL (33.0-37.0); MEAN PLATELET VOLUME 9.3 fL (7.2-11.7); MONO # 0.4 K/uL (0.0-0.8); NEUT # 4.7 K/uL (1.8-7.0); NEUT % 64.6 % (50.0-75.0); NRBC % 0.1 % (0.0-2.0); RBC 5.06 Mil/uL (3.80-5.20); RED CELL DISTRIBUTION WIDTH 26.8 % (11.5-14.5); WHITE BLOOD COUNT 7.2 K/uL (4.8-10.8)
[2018-01-12 07:21] LABS: MEAN CELL VOLUME 60.6 fL (81.0-99.0)
[2018-01-12 07:27] LABS: ALB/GLOB RATIO 1.3 (1.0-2.1); ALBUMIN 3.9 g/dL (3.5-5.0); ALT/SGPT 66 U/L (9-52); AST/SGOT 38 U/L (14-36); BLOOD UREA NITROGEN 10 mg/dL (7-17); CALCIUM 9.3 mg/dl (8.6-10.4); GFR NON-AFRICAN AMERICAN > 60
[2018-01-12 08:03] LABS: FERRITIN 5.1 ng/mL
[2018-01-12 08:34] LABS: FOLATE 10.7 ng/mL
--- NOTE | 2018-01-12 09:23 | CP.PCM.CON ---
History of Present Illness - History of Present Illness History of Present Illness: GI Service Consult CC: anemia, melena HPI: 42 year old woman admitted with severe anemia, weakness, dyspnea. Patient has long history of anemia over many years, felt to be from menorrhagia. Patient underwent hysterectomy but anemia persisted and has required many blood transfusions over the years. Patient had GI workup by Dr Medina including EGD and colonoscopy in 2017- patient recalls being told she had benign polyps removed. Capsule endoscopy via Dr Medina in Apr 2017 showed "ulcers" according to patient's recollection. Patient notes intermittent melenic episodes "2-3 x/ month" according to her recollection, despite continued Pantoprazole use. The last such melenic episode was 3 days ago. She currently has brown BMs. She de nies changes in bowel habits. Of late patient notes dysphagia and odynophagia. She also has new elevations in liver enzymes. Patient is S/P cholecystectomy for gallstones. Patient notes chronic post prandial epigastric bloating and dyspepsia. A CT abdomen from 2015 was remarkable for large hiatal hernia. Past Patient History - Infectious Disease Hx of Infectious Diseases: None - Past Medical History & Family History Past Medical History?: Yes - Past Social History Smoking Status: Former Smoker Alcohol: None - CARDIAC Hx Heart Attack: Yes Hx Heart Murmur: Yes Hx Hypertension: Yes Hx Mitral Valve Prolapse: Yes - PULMONARY Hx Respiratory Disorders: No Hx Sleep Apnea: Yes - NEUROLOGICAL Hx Neurological Disorder: No - HEENT Hx HEENT Problems: No - ENDOCRINE/METABOLIC Hx Endocrine Disorders: Yes Other/Comment: Marfan's syndrome - HEMATOLOGICAL/ONCOLOGICAL Hx Anemia: Yes - INTEGUMENTARY Hx Dermatological Problems: No - MUSCULOSKELETAL/RHEUMATOLOGICAL Hx Musculoskeletal Disorders: Yes Hx Falls: Yes (2016) Other/Comment: scoliosis - GASTROINTESTINAL Hx Gastrointestinal Disorders: Yes Hx Gastroesophageal Reflux: Yes - GENITOURINARY/GYNECOLOGICAL Hx Genitourinary Disorders: No - PSYCHIATRIC Hx Psychophysiologic Disorder: No Hx Substance Use: No - SURGICAL HISTORY Hx Cholecystectomy: Yes Hx Hysterectomy: Yes - ANESTHESIA Hx Anesthesia: Yes Hx Anesthesia Reactions: No Meds Allergies/Adverse Reactions: Allergies Allergy/AdvReac Type Severity Reaction Status Date / Time No Known Allergies Allergy Verified 01/11/18 13:27 - Medications Medications: Current Medications Ferric Sodium Gluconate Complex (Ferrlecit) 125 mg IVPB DAILY [facility] Stop: 01/20/18 10:01 Sodium Chloride (Sodium Chloride 0.45%) 1,000 mls @ 125 mls/hr IV .Q8H [facility] Last Admin: 01/12/18 07:41 Dose: 125 mls/hr Metoprolol Succinate (Toprol Xl) 50 mg PO DAILY [facility] Pantoprazole Sodium (Protonix Ec Tab) 40 mg PO DAILY [facility] Physical Exam - Constitutional Appears: Well, No Acute Distress Additional comments: Overweight - Head Exam Head Exam: ATRAUMATIC, NORMOCEPHALIC - Eye Exam Eye Exam: Normal appearance. absent: Scleral icterus - Neck Exam Neck exam: Negative for: Thyromegaly - Respiratory Exam Respiratory Exam: Clear to Auscultation Bilateral - Cardiovascular Exam Cardiovascular Exam: REGULAR RHYTHM - GI/Abdominal Exam GI & Abdominal Exam: Soft. absent: Distended, Guarding, Mass, Rebound (Obese), Tenderness - Rectal Exam Rectal Exam: Deferred Results - Vital Signs Recent Vital Signs: Last Vital Signs Temp 97.7 F 01/12/18 08:13 Pulse 68 01/12/18 08:13 Resp 20 01/12/18 08:13 BP 151/96 H 01/12/18 08:13 Pulse Ox 97 01/12/18 08:13 - Labs Result Diagrams: 01/12/18 06:44 01/12/18 06:44 Labs: Laboratory Results - last 24 hr 01/11/18 01/11/18 01/11/18 13:24 14:21 14:21 WBC RBC Hgb Hct MCV MCH MCHC RDW Plt Count MPV Neut % (Auto) Lymph % (Auto) [place] % (Auto) Eos % (Auto) Baso % (Auto) Neut # (Auto) Lymph # (Auto) [place] # (Auto) Eos # (Auto) Baso # (Auto) Differential Comment Retic Count PT INR APTT Sodium Potassium Chloride Carbon Dioxide Anion Gap BUN Creatinine Est GFR ( Amer) Est GFR (Non-Af Amer) POC Glucose (mg/dL) 211 H Random Glucose Calcium Ferritin Total Bilirubin AST ALT Alkaline Phosphatase Troponin I NT-Pro-B Natriuret Pep Total Protein Albumin Globulin Albumin/Globulin Ratio Vitamin B12 Folate Urine Color Yellow Urine Clarity Clear Urine pH 5.0 Ur Specific [place] 1.024 Urine Protein Negative Urine Glucose (UA) Normal Urine Ketones Negative Urine Blood Negative Urine Nitrate Negative Urine Bilirubin Negative Urine Urobilinogen Normal Ur Leukocyte Esterase Neg Urine WBC (Auto) 1 Urine RBC (Auto) 2 Ur Squamous Epith Cells 1 Urine Bacteria Rare Urine HCG, Qual Stool Occult Blood Urine Opiates Screen Negative Urine Methadone Screen Negative Ur Barbiturates Screen Negative Ur Phencyclidine Scrn Negative Ur Amphetamines Screen Negative U Benzodiazepines Scrn Negative U Oth Cocaine Metabols Negative U Cannabinoids Screen Negative Blood Type Antibody Screen 01/11/18 01/11/18 01/11/18 14:42 14:42 14:42 WBC 7.7 RBC 4.70 Hgb 7.5 L Hct 26.3 L MCV 56.0 L D MCH 15.9 L MCHC 28.5 L RDW 20.6 H Plt Count 248 MPV 9.3 Neut % (Auto) 67.6 Lymph % (Auto) 24.8 [place] % (Auto) 5.9 Eos % (Auto) 1.1 Baso % (Auto) 0.6 Neut # (Auto) 5.2 Lymph # (Auto) 1.9 [place] # (Auto) 0.5 Eos # (Auto) 0.1 Baso # (Auto) 0.0 Differential Comment Retic Count PT 12.6 H INR 1.2 APTT 25 Sodium 139 Potassium 4.2 Chloride 101 Carbon Dioxide 25 Anion Gap 17 BUN 12 Creatinine 0.5 L Est GFR ( Amer) > 60 Est GFR (Non-Af Amer) > 60 POC Glucose (mg/dL) Random Glucose 148 H Calcium 9.5 Ferritin Total Bilirubin 0.4 AST 58 H ALT 80 H D Alkaline Phosphatase 110 Troponin I < 0.0120 NT-Pro-B Natriuret Pep 78.4 Total Protein 7.6 Albumin 4.3 Globulin 3.3 Albumin/Globulin Ratio 1.3 Vitamin B12 Folate Urine Color Urine Clarity Urine pH Ur Specific [place] Urine Protein Urine Glucose (UA) Urine Ketones Urine Blood Urine Nitrate Urine Bilirubin Urine Urobilinogen Ur Leukocyte Esterase Urine WBC (Auto) Urine RBC (Auto) Ur Squamous Epith Cells Urine Bacteria Urine HCG, Qual Stool Occult Blood Urine Opiates Screen Urine Methadone Screen Ur Barbiturates Screen Ur Phencyclidine Scrn Ur Amphetamines Screen U Benzodiazepines Scrn U Oth Cocaine Metabols U Cannabinoids Screen Blood Type Antibody Screen 01/11/18 01/11/18 01/11/18 14:42 15:35 15:35 WBC RBC Hgb Hct MCV MCH MCHC RDW Plt Count MPV Neut % (Auto) Lymph % (Auto) [place] % (Auto) Eos % (Auto) Baso % (Auto) Neut # (Auto) Lymph # (Auto) [place] # (Auto) Eos # (Auto) Baso # (Auto) Differential Comment Retic Count PT INR APTT Sodium Potassium Chloride Carbon Dioxide Anion Gap BUN Creatinine Est GFR ( Amer) Est GFR (Non-Af Amer) POC Glucose (mg/dL) Random Glucose Calcium Ferritin Total Bilirubin AST ALT Alkaline Phosphatase Troponin I NT-Pro-B Natriuret Pep Total Protein Albumin Globulin Albumin/Globulin Ratio Vitamin B12 Folate Urine Color Urine Clarity Urine pH Ur Specific [place] Urine Protein Urine Glucose (UA) Urine Ketones Urine Blood Urine Nitrate Urine Bilirubin Urine Urobilinogen Ur Leukocyte Esterase Urine WBC (Auto) Urine RBC (Auto) Ur Squamous Epith Cells Urine Bacteria Urine HCG, Qual Negative Stool Occult Blood Negative Urine Opiates Screen Urine Methadone Screen Ur Barbiturates Screen Ur Phencyclidine Scrn Ur Amphetamines Screen U Benzodiazepines Scrn U Oth Cocaine Metabols U Cannabinoids Screen Blood Type B POSITIVE Antibody Screen Negative 01/12/18 01/12/18 06:44 06:44 WBC 7.2 RBC 5.06 Hgb 9.2 L Hct 30.7 L MCV 60.6 L D MCH 18.1 L MCHC 29.8 L RDW 26.8 H Plt Count 187 MPV 9.3 Neut % (Auto) 64.6 Lymph % (Auto) 27.5 [place] % (Auto) 6.0 Eos % (Auto) 1.3 Baso % (Auto) 0.6 Neut # (Auto) 4.7 Lymph # (Auto) 2.0 [place] # (Auto) 0.4 Eos # (Auto) 0.1 Baso # (Auto) 0.0 Differential Comment Retic Count 2.3 H D PT INR APTT Sodium 140 Potassium 4.4 Chloride 103 Carbon Dioxide 27 Anion Gap 15 BUN 10 Creatinine 0.6 L Est GFR ( Amer) > 60 Est GFR (Non-Af Amer) > 60 POC Glucose (mg/dL) Random Glucose 117 H Calcium 9.3 Ferritin 5.1 Total Bilirubin 0.5 AST 38 H D ALT 66 H Alkaline Phosphatase 111 Troponin I NT-Pro-B Natriuret Pep Total Protein 7.0 Albumin 3.9 Globulin 3.1 Albumin/Globulin Ratio 1.3 Vitamin B12 539 Folate 10.7 Urine Color Urine Clarity Urine pH Ur Specific [place] Urine Protein Urine Glucose (UA) Urine Ketones Urine Blood Urine Nitrate Urine Bilirubin Urine Urobilinogen Ur Leukocyte Esterase Urine WBC (Auto) Urine RBC (Auto) Ur Squamous Epith Cells Urine Bacteria Urine HCG, Qual Stool Occult Blood Urine Opiates Screen Urine Methadone Screen Ur Barbiturates Screen Ur Phencyclidine Scrn Ur Amphetamines Screen U Benzodiazepines Scrn U Oth Cocaine Metabols U Cannabinoids Screen Blood Type Antibody Screen Assessment & Plan (1) Dysphagia Status: Acute (2) Anemia Status: Acute Priority: High (3) Marfan's syndrome Status: Chronic (4) Elevated transaminase level Assessment and Plan: New. Fatty liver disease most likely. Will initiate lab workup for CLD Status: Acute (5) Melena Assessment and Plan: Severe anemia/melena/dysphagia/abdominal pain- Recommend EGD, PPI. Status: Acute
[2018-01-12] MEDS ORDERED: Ferric Sodium Gluconat Complex 62.5 mg/5 ml Vial IVPB SCH (10:00)
[2018-01-12] MEDS: Ferric Sodium Gluconat Complex 125 MG in Sodium Chloride 0.9% 100 ML IVPB SCH (10:19)
[2018-01-12] MEDS: Metoprolol Succinate 50 mg XL Tab PO SCH (10:20)
[2018-01-12] MEDS: Pantoprazole 40 mg EC Tab PO SCH (10:20)
--- NOTE | 2018-01-12 19:08 | CP.PCM.PN ---
Subjective - Date & Time of Evaluation Date of Evaluation: 01/12/18 Time of Evaluation: 12:10 - Subjective Subjective: PGY2 Medicine Note for Dr. Card Patient seen and examined at bedside this morning. Patient states she is feeling well. She is feeling much stronger today with a lot more energy. She reports brown stools this morning, denying melena. She is still having difficulty swallowing at times but has been able to tolerate her diet at this time. She denies any pain, lightheadedness, dizziness, weakness, chest pain or shortness of breath since she received her blood transfusion. Objective - Vital Signs/Intake and Output Vital Signs (last 24 hours): Temp Pulse Resp BP Pulse Ox 98.2 F 77 20 131/84 99 01/12/18 16:41 01/12/18 16:41 01/12/18 16:41 01/12/18 16:41 01/12/18 16:41 Intake and Output: 01/12/18 01/13/18 18:59 06:59 Intake Total 1910 Balance 1910 - Medications Medications: Current Medications Sodium Chloride (Sodium Chloride 0.45%) 1,000 mls @ 125 mls/hr IV .Q8H [facility] Last Admin: 01/12/18 16:22 Dose: 125 mls/hr Ferric Sodium Gluconate Complex 125 mg/ Sodium Chloride 110 mls @ 110 mls/hr IVPB DAILY [facility] Stop: 01/16/18 10:59 Last Admin: 01/12/18 10:19 Dose: 110 mls/hr Metoprolol Succinate (Toprol Xl) 50 mg PO DAILY [facility] Last Admin: 01/12/18 10:20 Dose: 50 mg Pantoprazole Sodium (Protonix Ec Tab) 40 mg PO DAILY [facility] Last Admin: 01/12/18 10:20 Dose: 40 mg - Labs Labs: 01/12/18 06:44 01/12/18 06:44 PT 12.6 SECONDS (9.7-12.2) H 01/11/18 14:42 INR 1.2 01/11/18 14:42 APTT 25 SECONDS (21-34) 01/11/18 14:42 - Constitutional Appears: Non-toxic, No Acute Distress, Other (obese) - Head Exam Head Exam: ATRAUMATIC, NORMOCEPHALIC - Eye Exam Eye Exam: Normal appearance - ENT Exam ENT Exam: Mucous Membranes Moist - Neck Exam Neck Exam: Full ROM. absent: Lymphadenopathy - Respiratory Exam Respiratory Exam: Clear to Ausculation Bilateral, NORMAL BREATHING PATTERN. absent: Accessory Muscle Use, Chest Wall Tenderness, Rales, Rhonchi, Wheezes, Respiratory Distress - Cardiovascular Exam Cardiovascular Exam: REGULAR RHYTHM, +S1 - GI/Abdominal Exam GI & Abdominal Exam: Soft, Normal Bowel Sounds. absent: Distended, Firm, Guarding, Rigid, Tenderness - Extremities Exam Extremities Exam: absent: Calf Tenderness - Neurological Exam Neurological Exam: Alert, Awake, Oriented x3 - Psychiatric Exam Psychiatric exam: Normal Affect, Normal Mood - Skin Skin Exam: Dry, Normal Color, Warm Assessment and Plan - Assessment and Plan (Free Text) Plan: Symptomatic Anemia hx of dysfunctional uterine bleeding (hysertectomy 2016) hx of GI ulcer with melena Hem/Onc Consulted, Dr. Roberson * Transfused 2u of pRBCs (01/11) * IV iron 125mg - IVPB daily x 5 doses GI consulted, Dr. Zuleta Hgb upon admission 7.5 * Up to 9.2 - s/p transfusion * continue to monitor Retic Count: 2.3 Vit B12: pending folate: 10.7 ferritin: 5.1 Trop: neg pro-BNP: 78.4 Stool occult negative Medications: * Protonix 40mg PO daily * IV iron 125mg - IVPB daily x 5 doses * 1/2 NS@125mL/hr Dysphagia hx of GI ulcer with melena GI consulted, Dr. Zuleta * per GI note, recommend EGD * follow up additional recs Patient currently tolerating Heart Healthy Diet continue to monitor Transaminitis improving work up: * GENA IFA SCR * Smooth Muscle AB * PT/INR continue to monitor Prophylactic care VTE - contraindication to anticoag due to anemia, hx of melena SCDs Protonix 40mg PO daily Case discussed with Dr. Stephie Rashid Judith PGY2
[2018-01-13] MEDS: Sodium Chloride 0.45% 1,000 ML IV SCH ×3 (00:50→16:52)
[2018-01-13 08:05] LABS: INR 1.1; PROTHROMBIN TIME 12.2 SECONDS (9.7-12.2)
[2018-01-13 08:15] LABS: ALB/GLOB RATIO 1.3 (1.0-2.1); ALBUMIN 4.1 g/dL (3.5-5.0); ALT/SGPT 72 U/L (9-52); AST/SGOT 41 U/L (14-36); BLOOD UREA NITROGEN 11 mg/dL (7-17); CALCIUM 9.5 mg/dl (8.6-10.4); GFR NON-AFRICAN AMERICAN > 60; HDL CHOLESTEROL 28 mg/dL (30-70)
[2018-01-13 08:20] LABS: BASO % 0.5 % (0.0-2.0); EOS # 0.1 K/uL (0.0-0.7); EOS % 1.1 % (0.0-4.0); HEMOGLOBIN 9.1 g/dL (11.0-16.0); LYMPH % 28.7 % (20.0-40.0); MEAN CORPUSCULAR HEMOGLOBIN 17.6 pg (27.0-31.0); MEAN CORPUSCULAR HGB CONC 29.4 g/dL (33.0-37.0); MEAN PLATELET VOLUME 9.2 fL (7.2-11.7); MONO # 0.4 K/uL (0.0-0.8); NEUT # 4.5 K/uL (1.8-7.0); NEUT % 64.7 % (50.0-75.0); NRBC % 0.2 % (0.0-2.0); RBC 5.17 Mil/uL (3.80-5.20); RED CELL DISTRIBUTION WIDTH 27.2 % (11.5-14.5)
[2018-01-13 08:26] LABS: LDL CHOLESTEROL 96 mg/dL (0-129)
[2018-01-13] MEDS: Pantoprazole 40 mg EC Tab PO SCH (09:20)
[2018-01-13] MEDS: Metoprolol Succinate 50 mg XL Tab PO SCH (09:21)
--- NOTE | 2018-01-13 09:44 | CP.PCM.PN ---
Subjective - Date & Time of Evaluation Date of Evaluation: 01/13/18 Time of Evaluation: 09:40 - Subjective Subjective: Medical Attending Note: patient seen and examined this morning. Patient denies fever, denies chills, denies chest pain, denies shortness of breathe, reports abdominal pain 3/10, denies nausea, denies vomitting, denies dysuria, and reports willingness to do endoscopy with GI. Objective - Vital Signs/Intake and Output Vital Signs (last 24 hours): Temp Pulse Resp BP Pulse Ox 97.7 F 64 20 149/89 98 01/13/18 07:21 01/13/18 07:21 01/13/18 07:21 01/13/18 07:21 01/13/18 07:21 Intake and Output: 01/13/18 01/13/18 06:59 18:59 Intake Total 1999 Balance 1999 - Medications Medications: Current Medications Sodium Chloride (Sodium Chloride 0.45%) 1,000 mls @ 125 mls/hr IV .Q8H [facility] Last Admin: 01/13/18 09:00 Dose: 125 mls/hr Ferric Sodium Gluconate Complex 125 mg/ Sodium Chloride 110 mls @ 110 mls/hr IVPB DAILY [facility] Stop: 01/16/18 10:59 Last Admin: 01/12/18 10:19 Dose: 110 mls/hr Metoprolol Succinate (Toprol Xl) 50 mg PO DAILY [facility] Last Admin: 01/13/18 09:21 Dose: 50 mg Pantoprazole Sodium (Protonix Ec Tab) 40 mg PO DAILY [facility] Last Admin: 01/13/18 09:20 Dose: 40 mg - Labs Labs: 01/13/18 07:48 01/13/18 07:48 PT 12.2 SECONDS (9.7-12.2) 01/13/18 07:48 INR 1.1 01/13/18 07:48 APTT 25 SECONDS (21-34) 01/11/18 14:42 - Constitutional Appears: Non-toxic, No Acute Distress - Head Exam Head Exam: NORMAL INSPECTION - Eye Exam Eye Exam: EOMI - ENT Exam ENT Exam: Mucous Membranes Moist - Respiratory Exam Respiratory Exam: Clear to Ausculation Bilateral, NORMAL BREATHING PATTERN. absent: Rales, Rhonchi, Wheezes - Cardiovascular Exam Cardiovascular Exam: REGULAR RHYTHM, +S1, +S2 - GI/Abdominal Exam GI & Abdominal Exam: Soft, Normal Bowel Sounds. absent: Distended, Firm, Guarding, Rigid, Tenderness, Rebound - Extremities Exam Extremities Exam: absent: Pedal Edema, Tenderness - Neurological Exam Neurological Exam: Alert, Awake, Oriented x3 - Psychiatric Exam Psychiatric exam: Normal Affect, Normal Mood - Skin Skin Exam: Dry, Intact, Normal Color, Warm Assessment and Plan (1) Acute on chronic blood loss anemia Assessment & Plan: GI on board heme onc on board s/p 2 units of PRBC hgb stable post blood transfusion pending possible endoscopy reticulocyte count: 0.5; index: 0.20-->reticulocyte index 0.20-->hypoprolife ration MVC<60 check hemglobinpathy electrophroesis Status: Acute (2) History of ulcer disease Status: Chronic (3) S/P hysterectomy Status: Chronic (4) Transaminitis Assessment & Plan: pending hepatitis panel Status: Acute (5) Iron deficiency anemia Assessment & Plan: patient is Ferelect IV heme on on board gi on board Status: Acute (6) Prophylactic measure Assessment & Plan: contraindication to vte secondary to GI bleed protonix 40mg PO daily 1/2 NS 125 cc/hr Status: Acute
[2018-01-13] MEDS: Ferric Sodium Gluconat Complex 125 MG in Sodium Chloride 0.9% 100 ML IVPB SCH (11:00)
--- NOTE | 2018-01-13 12:21 | CP.PCM.PN ---
Subjective - Date & Time of Evaluation Date of Evaluation: 01/13/18 Time of Evaluation: 12:19 - Subjective Subjective: feels better/stronger. Denies abdominal pain. Hgb stable post transfusion. Liver enzymes mildly elevated Objective - Vital Signs/Intake and Output Vital Signs (last 24 hours): Temp Pulse Resp BP Pulse Ox 97.7 F 64 20 149/89 98 01/13/18 07:21 01/13/18 07:21 01/13/18 07:21 01/13/18 07:21 01/13/18 07:21 Intake and Output: 01/13/18 01/13/18 06:59 18:59 Intake Total 1999 Balance 1999 - Medications Medications: Current Medications Sodium Chloride (Sodium Chloride 0.45%) 1,000 mls @ 125 mls/hr IV .Q8H [facility] Last Admin: 01/13/18 09:00 Dose: 125 mls/hr Ferric Sodium Gluconate Complex 125 mg/ Sodium Chloride 110 mls @ 110 mls/hr IVPB DAILY [facility] Stop: 01/16/18 10:59 Last Admin: 01/12/18 10:19 Dose: 110 mls/hr Pantoprazole Sodium (Protonix Ec Tab) 40 mg PO DAILY [facility] Last Admin: 01/13/18 09:20 Dose: 40 mg - Labs Labs: 01/13/18 07:48 01/13/18 07:48 PT 12.2 SECONDS (9.7-12.2) 01/13/18 07:48 INR 1.1 01/13/18 07:48 APTT 25 SECONDS (21-34) 01/11/18 14:42 - Constitutional Appears: Well, No Acute Distress - Eye Exam Eye Exam: absent: Scleral icterus - GI/Abdominal Exam GI & Abdominal Exam: Soft. absent: Tenderness Assessment and Plan (1) Dysphagia Status: Acute (2) Anemia Status: Acute (3) Marfan's syndrome Status: Chronic (4) Elevated transaminase level Assessment & Plan: Check sonogram Suspect NAFLD Hep profile pending Status: Acute (5) Melena Assessment & Plan: stable Hgb EGD tomorrow to assess GI bleed/melena and dysphagia D/W medical lab director and patient Status: Acute
--- NOTE | 2018-01-13 21:41 | CP.PCM.PN ---
Subjective - Date & Time of Evaluation Date of Evaluation: 01/13/18 Time of Evaluation: 18:00 - Subjective Subjective: Feeling better Objective - Vital Signs/Intake and Output Vital Signs (last 24 hours): Temp Pulse Resp BP Pulse Ox 98.4 F 71 20 158/89 H 98 01/13/18 17:10 01/13/18 17:10 01/13/18 17:10 01/13/18 17:10 01/13/18 17:10 Intake and Output: 01/13/18 01/14/18 18:59 06:59 Intake Total 1615 120 Balance 1615 120 - Medications Medications: Current Medications Sodium Chloride (Sodium Chloride 0.45%) 1,000 mls @ 125 mls/hr IV .Q8H [facility] Last Admin: 01/13/18 16:52 Dose: 125 mls/hr Ferric Sodium Gluconate Complex 125 mg/ Sodium Chloride 110 mls @ 110 mls/hr IVPB DAILY [facility] Stop: 01/16/18 10:59 Last Admin: 01/13/18 11:00 Dose: 110 mls/hr Pantoprazole Sodium (Protonix Ec Tab) 40 mg PO DAILY [facility] Last Admin: 01/13/18 09:20 Dose: 40 mg - Labs Labs: 01/13/18 07:48 01/13/18 07:48 PT 12.2 SECONDS (9.7-12.2) 01/13/18 07:48 INR 1.1 01/13/18 07:48 APTT 25 SECONDS (21-34) 01/11/18 14:42 - Head Exam Head Exam: ATRAUMATIC - Eye Exam Eye Exam: Normal appearance - ENT Exam ENT Exam: Mucous Membranes Dry - Respiratory Exam Respiratory Exam: NORMAL BREATHING PATTERN - Cardiovascular Exam Cardiovascular Exam: +S1, +S2 - GI/Abdominal Exam GI & Abdominal Exam: Normal Bowel Sounds Assessment and Plan (1) Iron deficiency anemia Assessment & Plan: IV iron s/p PRBC transfusion GI w/u Status: Acute
[2018-01-14] MEDS: Sodium Chloride 0.45% 1,000 ML IV SCH ×2 (01:30→09:59)
[2018-01-14 06:48] LABS: INR 1.1; PROTHROMBIN TIME 12.5 SECONDS (9.7-12.2)
[2018-01-14 06:49] LABS: ALB/GLOB RATIO 1.3 (1.0-2.1); ALT/SGPT 67 U/L (9-52); AST/SGOT 37 U/L (14-36); BLOOD UREA NITROGEN 14 mg/dL (7-17); CALCIUM 9.5 mg/dl (8.6-10.4); GFR NON-AFRICAN AMERICAN > 60
[2018-01-14 07:08] LABS: BASO % 0.5 % (0.0-2.0); EOS # 0.1 K/uL (0.0-0.7); EOS % 1.3 % (0.0-4.0); HEMOGLOBIN 8.8 g/dL (11.0-16.0); LYMPH # 1.9 K/uL (1.0-4.3); LYMPH % 24.2 % (20.0-40.0); MEAN CELL VOLUME 59.9 fL (81.0-99.0); MEAN PLATELET VOLUME 9.6 fL (7.2-11.7); MONO # 0.5 K/uL (0.0-0.8); MONO % 6.6 % (0.0-10.0); NEUT # 5.3 K/uL (1.8-7.0); NEUT % 67.4 % (50.0-75.0); RBC 4.9 Mil/uL (3.80-5.20); RED CELL DISTRIBUTION WIDTH 27.1 % (11.5-14.5); WHITE BLOOD COUNT 7.9 K/uL (4.8-10.8)
--- NOTE | 2018-01-14 08:14 | CARD ---
APPROVED REPORT Date of service: 01/11/2018 EKG Measurement Heart [id number] <Conclusion> Normal sinus rhythm T wave abnormality, consider anterolateral ischemia Prolonged QT Abnormal ECG
[2018-01-14 08:16] LABS: HEPATITIS B SURFACE AG Negative (NEGATIVE)
[2018-01-14 08:22] LABS: HEPATITIS A IGM NEGATIVE (NEGATIVE); HEPATITIS B CORE AB NEGATIVE (NEGATIVE)
[2018-01-14 08:32] LABS: HEPATITIS C ANTIBODY NEGATIVE (NEGATIVE)
[2018-01-14] MEDS: Ferric Sodium Gluconat Complex 125 MG in Sodium Chloride 0.9% 100 ML IVPB SCH (09:55)
[2018-01-14] MEDS: Pantoprazole 40 mg EC Tab PO SCH (09:55)
[2018-01-14] MEDS ORDERED: Lidocaine 4% (Laryng-O-Jet) Kit MM ONE ×2 (14:17→14:30)
[2018-01-14] MEDS ORDERED: Midazolam 2 MG/2 ML VIAL ONE (14:27)
[2018-01-14] MEDS ORDERED: Propofol 10 mg/ml Inj (20 ML) ONE (14:27)
[2018-01-14] MEDS ORDERED: Lactated Ringer's 1,000 ML IV ONE (14:30)
--- NOTE | 2018-01-14 14:48 | CP.PCM.PN ---
Subjective - Date & Time of Evaluation Date of Evaluation: 01/14/18 Time of Evaluation: 14:47 - Subjective Subjective: EGD performed- see report for details + gastric ulcers Objective - Vital Signs/Intake and Output Vital Signs (last 24 hours): Temp Pulse Resp BP Pulse Ox 97.4 F L 71 20 144/84 98 01/14/18 07:04 01/14/18 07:04 01/14/18 07:04 01/14/18 07:04 01/14/18 07:04 Intake and Output: 01/14/18 01/14/18 06:59 18:59 Intake Total 1880 Balance 1880 - Medications Medications: Current Medications Sodium Chloride (Sodium Chloride 0.45%) 1,000 mls @ 125 mls/hr IV .Q8H [facility] Last Admin: 01/14/18 09:59 Dose: 125 mls/hr Ferric Sodium Gluconate Complex 125 mg/ Sodium Chloride 110 mls @ 110 mls/hr IVPB DAILY [facility] Stop: 01/16/18 10:59 Last Admin: 01/14/18 09:55 Dose: 110 mls/hr Pantoprazole Sodium (Protonix Ec Tab) 40 mg PO DAILY [facility] Last Admin: 01/14/18 09:55 Dose: 40 mg - Labs Labs: 01/14/18 06:25 01/14/18 06:25 PT 12.5 SECONDS (9.7-12.2) H 01/14/18 06:25 INR 1.1 01/14/18 06:25 APTT 25 SECONDS (21-34) 01/11/18 14:42 Assessment and Plan (1) Dysphagia Status: Acute (2) Anemia Status: Acute (3) Marfan's syndrome Status: Chronic (4) Elevated transaminase level Status: Acute (5) Melena Status: Acute
--- NOTE | 2018-01-14 15:14 | US ---
HISTORY: elevated liver enzymes COMPARISON: CT abdomen and pelvis without IV contrast performed 05/21/15 TECHNIQUE: Sonographic evaluation of the abdomen. FINDINGS: LIVER: Measures 22.2 cm in sagittal dimension. Echogenic liver may be seen in setting of hepatic parenchymal disease or fatty infiltration. No focal hepatic mass identified. The main portal vein appears patent with normal directional flow. No intrahepatic bile duct dilatation. GALLBLADDER: Cholecystectomy. COMMON BILE DUCT: Measures 4 mm. PANCREAS: Not well visualized. RIGHT KIDNEY: Measures 13.0 x 5.0 x 6.4 cm. No obstructing calculus or hydronephrosis identified. LEFT KIDNEY: Measures 12.3 x 5.8 x 6.9 cm. No obstructing calculus or hydronephrosis identified. SPLEEN: Measures approximately 17.5 cm. AORTA: Limited views appear unremarkable. IVC: Limited views appear unremarkable. OTHER FINDINGS: None. IMPRESSION: Echogenic liver may be seen in setting of hepatic parenchymal disease or fatty infiltration. Hepatomegaly. Splenomegaly. Cholecystectomy.
[2018-01-14 16:34] VITALS: BP 139/73; PULSE 73; RESP 20; TEMP 98; O2SAT 96
--- NOTE | 2018-01-14 18:00 | CP.PCM.DIS ---
<Paulie Castillo - Last Filed: 01/14/18 21:38> Provider - Provider Date of Admission: 01/11/18 15:14 Attending physician: Angela Mcclelland DO Time Spent in preparation of Discharge (in minutes): 35 Diagnosis - Discharge Diagnosis (1) Gastric ulcer Status: Acute (2) Hiatal hernia Status: Acute (3) Acute on chronic blood loss anemia Status: Chronic Hospital Course - Lab Results Lab Results: Most Recent Lab Values WBC 7.9 K/uL (4.8-10.8) 01/14/18 06:25 RBC 4.90 Mil/uL (3.80-5.20) 01/14/18 06:25 Hgb 8.8 g/dL (11.0-16.0) L 01/14/18 06:25 Hct 29.4 % (34.0-47.0) L 01/14/18 06:25 MCV 59.9 fL (81.0-99.0) L 01/14/18 06:25 MCH 18.0 pg (27.0-31.0) L 01/14/18 06:25 MCHC 30.0 g/dL (33.0-37.0) L 01/14/18 06:25 RDW 27.1 % (11.5-14.5) H 01/14/18 06:25 Plt Count 201 K/uL (130-400) 01/14/18 06:25 MPV 9.6 fL (7.2-11.7) 01/14/18 06:25 Neut % (Auto) 67.4 % (50.0-75.0) 01/14/18 06:25 Lymph % (Auto) 24.2 % (20.0-40.0) 01/14/18 06:25 Otero % (Auto) 6.6 % (0.0-10.0) 01/14/18 06:25 Eos % (Auto) 1.3 % (0.0-4.0) 01/14/18 06:25 Baso % (Auto) 0.5 % (0.0-2.0) 01/14/18 06:25 Neut # (Auto) 5.3 K/uL (1.8-7.0) 01/14/18 06:25 Lymph # (Auto) 1.9 K/uL (1.0-4.3) 01/14/18 06:25 Otero # (Auto) 0.5 K/uL (0.0-0.8) 01/14/18 06:25 Eos # (Auto) 0.1 K/uL (0.0-0.7) 01/14/18 06:25 Baso # (Auto) 0.0 K/uL (0.0-0.2) 01/14/18 06:25 Differential Comment 01/12/18 06:44 Retic Count 2.3 % (0.5-1.5) H D 01/12/18 06:44 PT 12.5 SECONDS (9.7-12.2) H 01/14/18 06:25 INR 1.1 01/14/18 06:25 APTT 25 SECONDS (21-34) 01/11/18 14:42 Sodium 140 mmol/L (132-148) 01/14/18 06:25 Potassium 4.1 mmol/L (3.6-5.2) 01/14/18 06:25 Chloride 103 mmol/L (98-107) 01/14/18 06:25 Carbon Dioxide 27 mmol/L (22-30) 01/14/18 06:25 Anion Gap 14 (10-20) 01/14/18 06:25 BUN 14 mg/dL (7-17) 01/14/18 06:25 Creatinine 0.5 mg/dL (0.7-1.2) L 01/14/18 06:25 Est GFR ( Amer) > 60 01/14/18 06:25 Est GFR (Non-Af Amer) > 60 01/14/18 06:25 POC Glucose (mg/dL) 93 mg/dL (65-110) 01/14/18 10:51 Random Glucose 127 mg/dL (65-105) H 01/14/18 06:25 Calcium 9.5 mg/dl (8.6-10.4) 01/14/18 06:25 Ferritin 5.1 ng/mL 01/12/18 06:44 Total Bilirubin 0.3 mg/dL (0.2-1.3) 01/14/18 06:25 AST 37 U/L (14-36) H 01/14/18 06:25 ALT 67 U/L (9-52) H 01/14/18 06:25 Alkaline Phosphatase 104 U/L (38-126) 01/14/18 06:25 Troponin I < 0.0120 ng/mL (0.00-0.120) 01/11/18 14:42 NT-Pro-B Natriuret Pep 78.4 pg/mL (0-450) 01/11/18 14:42 Total Protein 7.1 g/dL (6.3-8.3) 01/14/18 06:25 Albumin 4.0 g/dL (3.5-5.0) 01/14/18 06:25 Globulin 3.1 gm/dL (2.2-3.9) 01/14/18 06:25 Albumin/Globulin Ratio 1.3 (1.0-2.1) 01/14/18 06:25 Triglycerides 167 mg/dL (0-149) H 01/13/18 07:48 Cholesterol 163 mg/dL (0-199) 01/13/18 07:48 LDL Cholesterol Direct 96 mg/dL (0-129) 01/13/18 07:48 HDL Cholesterol 28 mg/dL (30-70) L 01/13/18 07:48 Vitamin B12 539 pg/mL (239-931) 01/12/18 06:44 Folate 10.7 ng/mL 01/12/18 06:44 Urine Color Yellow (YELLOW) 01/11/18 14:21 Urine Clarity Clear (Clear) 01/11/18 14:21 Urine pH 5.0 (5.0-8.0) 01/11/18 14:21 Ur Specific [place] 1.024 (1.003-1.030) 01/11/18 14:21 Urine Protein Negative mg/dL (NEGATIVE) 01/11/18 14:21 Urine Glucose (UA) Normal mg/dL (Normal) 01/11/18 14:21 Urine Ketones Negative mg/dL (NEGATIVE) 01/11/18 14:21 Urine Blood Negative (NEGATIVE) 01/11/18 14:21 Urine Nitrate Negative (NEGATIVE) 01/11/18 14:21 Urine Bilirubin Negative (NEGATIVE) 01/11/18 14:21 Urine Urobilinogen Normal mg/dL (0.2-1.0) 01/11/18 14:21 Ur Leukocyte Esterase Neg Gunner/uL (Negative) 01/11/18 14:21 Urine WBC (Auto) 1 /hpf (0-5) 01/11/18 14:21 Urine RBC (Auto) 2 /hpf (0-3) 01/11/18 14:21 Ur Squamous Epith Cells 1 /hpf (0-5) 01/11/18 14:21 Urine Bacteria Rare (<OCC) 01/11/18 14:21 Urine HCG, Qual Negative (NEGATIVE) 01/14/18 05:15 Stool Occult Blood Negative (NEGATIVE) 01/11/18 15:35 Urine Opiates Screen Negative (NEGATIVE) 01/11/18 14:21 Urine Methadone Screen Negative (NEGATIVE) 01/11/18 14:21 Ur Barbiturates Screen Negative (NEGATIVE) 01/11/18 14:21 Ur Phencyclidine Scrn Negative (NEGATIVE) 01/11/18 14:21 Ur Amphetamines Screen Negative (NEGATIVE) 01/11/18 14:21 U Benzodiazepines Scrn Negative (NEGATIVE) 01/11/18 14:21 U Oth Cocaine Metabols Negative (NEGATIVE) 01/11/18 14:21 U Cannabinoids Screen Negative (NEGATIVE) 01/11/18 14:21 Hepatitis A IgM Ab Negative (NEGATIVE) 01/13/18 07:48 Hep Bs Antigen Negative (NEGATIVE) 01/13/18 07:48 Hep B Core IgM Ab Negative (NEGATIVE) 01/13/18 07:48 Hepatitis C Antibody Negative (NEGATIVE) 01/13/18 07:48 Blood Type B POSITIVE 01/11/18 14:42 Antibody Screen Negative 01/11/18 14:42 - Hospital Course Hospital Course: On admission: 42F PMhx chronic anemia (since 2006), Marfan syndrome (diagnosed at age 8), sleep apnea, Mitral valve prolapse, presents with weakness and fatigue x 3 days. Also reports melena and abd pain that has been worsening since this am. Pt does not follow with PMD currently because she does not have insurance, currently has PMD in [place] where she states she follows up when she visits. Also reports near-syncopal episodes that have been worsening, states it might be due to her chronic anemia. Reports that she follows with Dr. Roberson outpatient for IV iron infusions, last infusion 1 mo prior, currently on PO iron tablets daily. Reports hx of 23 transfusions in the past (last one was 1 y ago as per pt), denies any hx of prior transfusion reactions. Reports following with Dr. Chau (GI) outpatient [facility] for hs of chronic anemia. States she last had video endoscopy done in Apr 2017 which demonstrated ulcers. Reports colonoscopy last in 2017 which showed multiple polyps but was negative for cancer. Had hysterectomy in 2017 2/2 fibroids causing her chronic anemia, but states the problem did not go away after that. Reports she no longer gets menstrual periods. Denies fever, chills, chest pain, sob, n/v/d/c, urinary complaints, or other symptoms. Stool occult blood neg in ED. CXR demonstrated no active pulmonary disease Hospital course: Hgb was 7.5 on admssion. Pt was transfussed 2 units of PRBCs. Pt started on IV hydration. Adequate response from transfusion. Pt was continued on her oral Iron medications, beta fabián for history of marfan syndrome. Dr. Roberson (Heme/Onc) consulted. Iron deficiency anemia. Pt started on IV iron. Dr. Zuleta (GI) consulted. recommended EGD, PPI, abdominal US. Pt's condition improved during hospital stay with increased energy and decreased abdominal pain. Abdominal US (01/14/18) shows Echogenic liver may be seen in setting of hepatic parenchymal disease or fatty infiltration. Hepatomegaly. Splenomegaly. Cholecystectomy. EGD 01/14/18 shows: Abnormal esophageal motility, suspicious for esophageal spasm. Biopsied. 9 cm hiatal hernia. Z-line variable, 35 cm from the incisors. Non-bleeding gastric ulcers with no stigmata of bleeding. Biopsied. Gastritis. Normal examined duodenum. Dr. Zuleta reports pt is safe for discharge home on oral ppi. Pt is medical stable and safe for discharge as per medical attending. Pt discharged home on beta fabián for marfan syndrome, iron pill for iron deficiency anemia, ppi for nonbleeding gastric ulcers, colace for anticipated iron-associated constipation. Pt instructed to follow up with outpatient clinic, or return to nearest ER for worsening symptoms of symptoms of GI bleed. Pt understands. This is a summary of the hospital course, please see chart for full details. Discharge Exam - Head Exam Head Exam: ATRAUMATIC - Eye Exam Eye Exam: EOMI, Normal appearance Additional comments: conjunctival pallor - ENT Exam ENT Exam: Mucous Membranes Moist - Neck Exam Neck exam: Normal Inspection - Respiratory Exam Respiratory Exam: NORMAL BREATHING PATTERN. absent: Rales, Rhonchi, Wheezes, Respiratory Distress - Cardiovascular Exam Cardiovascular Exam: REGULAR RHYTHM, +S1, +S2 - GI/Abdominal Exam GI & Abdominal Exam: Normal Bowel Sounds, Soft, Tenderness (mild diffuse abdominal tenderness). absent: Distended, Firm, Guarding, Rebound, Rigid - Extremities Exam Extremities exam: normal inspection Additional comments: no pedal edema, no calf tenderness Discharge Plan - Discharge Medications Prescriptions: Docusate Sodium [Colace] 100 mg PO TID 30 Days #90 capsule Ferrous Sulfate 325 mg PO TID 30 Days #90 tablet Metoprolol Succinate XL [Toprol XL] 50 mg PO DAILY #30 tab Pantoprazole [Protonix EC Tab] 40 mg PO DAILY 30 Days #30 ect - Follow Up Plan Condition: GOOD Disposition: HOME/ ROUTINE Instructions: Anemia Caused by Low Iron, Adult (DC), Bloody Stools, Adult (DC), Ferrous Sulfate, Metoprolol Additional Instructions: Patient is medically stable and safe for discharge home. Patient should start the following medications: Metoprolol succinate 50 mg PO daily, Ferrous sulfate 325 mg by mouth three times a day, Colace 100 mg by mouth three times a day, Protonix 40 mg by mouth once daily. Please take Iron pill with orange juice. Patient should stop taking Metoprolol 25 mg. Patient instructed to follow up with the [facility] in [facility] within 2 weeks. Pt instructed to call to arrange appointment. Patient informed that if the pain worsens or if the stool is black or she notices bright red blood in the stool to come to the nearest Emergency Department for evalu ation. Instructions explained to the patient, who understands and agrees with discharge plan. Referrals: [facility] at [facility] [Outside] <Angela Mcclelland V - Last Filed: 02/05/18 19:23> Provider - Provider Date of Admission: 01/11/18 15:14 Attending physician: Angela Mcclelland DO Diagnosis - Discharge Diagnosis (1) Acute on chronic blood loss anemia Status: Chronic (2) History of ulcer disease Status: Chronic (3) S/P hysterectomy Status: Chronic (4) Transaminitis Status: Acute (5) Iron deficiency anemia Status: Acute (6) Prophylactic measure Status: Acute Hospital Course - Lab Results Lab Results: Most Recent Lab Values WBC 7.9 K/uL (4.8-10.8) 01/14/18 06:25 RBC 4.90 Mil/uL (3.80-5.20) 01/14/18 06:25 Hgb 8.8 g/dL (11.0-16.0) L 01/14/18 06:25 Hct 29.4 % (34.0-47.0) L 01/14/18 06:25 MCV 59.9 fL (81.0-99.0) L 01/14/18 06:25 MCH 18.0 pg (27.0-31.0) L 01/14/18 06:25 MCHC 30.0 g/dL (33.0-37.0) L 01/14/18 06:25 RDW 27.1 % (11.5-14.5) H 01/14/18 06:25 Plt Count 201 K/uL (130-400) 01/14/18 06:25 MPV 9.6 fL (7.2-11.7) 01/14/18 06:25 Neut % (Auto) 67.4 % (50.0-75.0) 01/14/18 06:25 Lymph % (Auto) 24.2 % (20.0-40.0) 01/14/18 06:25 Otero % (Auto) 6.6 % (0.0-10.0) 01/14/18 06:25 Eos % (Auto) 1.3 % (0.0-4.0) 01/14/18 06:25 Baso % (Auto) 0.5 % (0.0-2.0) 01/14/18 06:25 Neut # (Auto) 5.3 K/uL (1.8-7.0) 01/14/18 06:25 Lymph # (Auto) 1.9 K/uL (1.0-4.3) 01/14/18 06:25 Otero # (Auto) 0.5 K/uL (0.0-0.8) 01/14/18 06:25 Eos # (Auto) 0.1 K/uL (0.0-0.7) 01/14/18 06:25 Baso # (Auto) 0.0 K/uL (0.0-0.2) 01/14/18 06:25 Differential Comment 01/12/18 06:44 Retic Count 2.3 % (0.5-1.5) H D 01/12/18 06:44 PT 12.5 SECONDS (9.7-12.2) H 01/14/18 06:25 INR 1.1 01/14/18 06:25 APTT 25 SECONDS (21-34) 01/11/18 14:42 Sodium 140 mmol/L (132-148) 01/14/18 06:25 Potassium 4.1 mmol/L (3.6-5.2) 01/14/18 06:25 Chloride 103 mmol/L (98-107) 01/14/18 06:25 Carbon Dioxide 27 mmol/L (22-30) 01/14/18 06:25 Anion Gap 14 (10-20) 01/14/18 06:25 BUN 14 mg/dL (7-17) 01/14/18 06:25 Creatinine 0.5 mg/dL (0.7-1.2) L 01/14/18 06:25 Est GFR ( Amer) > 60 01/14/18 06:25 Est GFR (Non-Af Amer) > 60 01/14/18 06:25 POC Glucose (mg/dL) 93 mg/dL (65-110) 01/14/18 10:51 Random Glucose 127 mg/dL (65-105) H 01/14/18 06:25 Calcium 9.5 mg/dl (8.6-10.4) 01/14/18 06:25 Ferritin 5.1 ng/mL 01/12/18 06:44 Total Bilirubin 0.3 mg/dL (0.2-1.3) 01/14/18 06:25 AST 37 U/L (14-36) H 01/14/18 06:25 ALT 67 U/L (9-52) H 01/14/18 06:25 Alkaline Phosphatase 104 U/L (38-126) 01/14/18 06:25 Troponin I < 0.0120 ng/mL (0.00-0.120) 01/11/18 14:42 NT-Pro-B Natriuret Pep 78.4 pg/mL (0-450) 01/11/18 14:42 Total Protein 7.1 g/dL (6.3-8.3) 01/14/18 06:25 Albumin 4.0 g/dL (3.5-5.0) 01/14/18 06:25 Globulin 3.1 gm/dL (2.2-3.9) 01/14/18 06:25 Albumin/Globulin Ratio 1.3 (1.0-2.1) 01/14/18 06:25 Triglycerides 167 mg/dL (0-149) H 01/13/18 07:48 Cholesterol 163 mg/dL (0-199) 01/13/18 07:48 LDL Cholesterol Direct 96 mg/dL (0-129) 01/13/18 07:48 HDL Cholesterol 28 mg/dL (30-70) L 01/13/18 07:48 Vitamin B12 539 pg/mL (239-931) 01/12/18 06:44 Folate 10.7 ng/mL 01/12/18 06:44 Urine Color Yellow (YELLOW) 01/11/18 14:21 Urine Clarity Clear (Clear) 01/11/18 14:21 Urine pH 5.0 (5.0-8.0) 01/11/18 14:21 Ur Specific [place] 1.024 (1.003-1.030) 01/11/18 14:21 Urine Protein Negative mg/dL (NEGATIVE) 01/11/18 14:21 Urine Glucose (UA) Normal mg/dL (Normal) 01/11/18 14:21 Urine Ketones Negative mg/dL (NEGATIVE) 01/11/18 14:21 Urine Blood Negative (NEGATIVE) 01/11/18 14:21 Urine Nitrate Negative (NEGATIVE) 01/11/18 14:21 Urine Bilirubin Negative (NEGATIVE) 01/11/18 14:21 Urine Urobilinogen Normal mg/dL (0.2-1.0) 01/11/18 14:21 Ur Leukocyte Esterase Neg Gunner/uL (Negative) 01/11/18 14:21 Urine WBC (Auto) 1 /hpf (0-5) 01/11/18 14:21 Urine RBC (Auto) 2 /hpf (0-3) 01/11/18 14:21 Ur Squamous Epith Cells 1 /hpf (0-5) 01/11/18 14:21 Urine Bacteria Rare (<OCC) 01/11/18 14:21 Urine HCG, Qual Negative (NEGATIVE) 01/14/18 05:15 Stool Occult Blood Negative (NEGATIVE) 01/11/18 15:35 Urine Opiates Screen Negative (NEGATIVE) 01/11/18 14:21 Urine Methadone Screen Negative (NEGATIVE) 01/11/18 14:21 Ur Barbiturates Screen Negative (NEGATIVE) 01/11/18 14:21 Ur Phencyclidine Scrn Negative (NEGATIVE) 01/11/18 14:21 Ur Amphetamines Screen Negative (NEGATIVE) 01/11/18 14:21 U Benzodiazepines Scrn Negative (NEGATIVE) 01/11/18 14:21 U Oth Cocaine Metabols Negative (NEGATIVE) 01/11/18 14:21 U Cannabinoids Screen Negative (NEGATIVE) 01/11/18 14:21 GENA Screen Negative (Negative) 01/13/18 07:48 GENA Titer TEST NOT PERFORMED 01/13/18 07:48 GENA Titer 2 TEST NOT PERFORMED 01/13/18 07:48 GENA Pattern TEST NOT PERFORMED 01/13/18 07:48 GENA Pattern 2 TEST NOT PERFORMED 01/13/18 07:48 Anti-Smooth Muscle Ab Negative (Negative) 01/13/18 07:48 Hepatitis A IgM Ab Negative (NEGATIVE) 01/13/18 07:48 Hep Bs Antigen Negative (NEGATIVE) 01/13/18 07:48 Hep B Core IgM Ab Negative (NEGATIVE) 01/13/18 07:48 Hepatitis C Antibody Negative (NEGATIVE) 01/13/18 07:48 Blood Type B POSITIVE 01/11/18 14:42 Antibody Screen Negative 01/11/18 14:42 Attending/Attestation - Attestation I have personally seen and examined this patient.: Yes I have fully participated in the care of the patient.: Yes I have reviewed all pertinent clinical information, including history, physical exam and plan: Yes Notes (Text): This is late computer entry for 01/14/18. patient seen, examined and case discussed with day-time resident. Stable from GI stand point for discharge; must follow-up outpatient upon disc harge for repeat EGD in 3months with GI ppx. Discharge instructions discussed with patient upon discharge. This is a summary of patient's hospitalization. Please see EMF for full detail of records Discharge Diagnoses (1) Nonbleeding gastric ulcer Gastritis Acute on chronic blood loss anemia Assessment & Plan: GI on board * Underwent EGD noted for abnormal esophageal motility, suspicousl for esophageal spasm. 9cm hiatal hernia, nonbleeding gastric ulcers with no stigmata of bleeding, gastritis heme onc on board * s/p 2 units of PRBC * hgb stable post blood transfusion * reticulocyte count: 0.5; index: 0.20-->reticulocyte index 0.20-->hypoproliferation * MVC<60 * check hemglobinpathy electrophroesis Status: Acute (2) History of ulcer disease Status: Chronic (3) S/P hysterectomy Status: Chronic (4) Transaminitis Assessment & Plan: pending hepatitis panel Status: Acute (5) Iron deficiency anemia Assessment & Plan: patient is Ferelect IV heme on on board gi on board Status: Acute (6) Prophylactic measure Assessment & Plan: contraindication to vte secondary to GI bleed protonix 40mg PO daily 1/2 NS 125 cc/hr Status: Acute
[2018-01-14] MEDS ORDERED: Influenza Vaccine 60 MCG/0.5 ML SYR (3 yr & up) IM ONE (18:53)
--- NOTE | 2018-01-15 18:59 | CP.PCM.PN ---
Subjective - Date & Time of Evaluation Date of Evaluation: 01/14/18 Time of Evaluation: 12:00 - Subjective Subjective: Feeling better Objective - Vital Signs/Intake and Output Vital Signs (last 24 hours): Temp Pulse Resp BP Pulse Ox 98 F 73 20 139/73 96 01/14/18 16:00 01/14/18 16:00 01/14/18 16:00 01/14/18 16:00 01/14/18 16:00 - Labs Labs: 01/14/18 06:25 01/14/18 06:25 PT 12.5 SECONDS (9.7-12.2) H 01/14/18 06:25 INR 1.1 01/14/18 06:25 APTT 25 SECONDS (21-34) 01/11/18 14:42 - Head Exam Head Exam: ATRAUMATIC - Eye Exam Eye Exam: Normal appearance - ENT Exam ENT Exam: Mucous Membranes Dry - Respiratory Exam Respiratory Exam: NORMAL BREATHING PATTERN - Cardiovascular Exam Cardiovascular Exam: +S1, +S2 - GI/Abdominal Exam GI & Abdominal Exam: Normal Bowel Sounds Assessment and Plan (1) Iron deficiency anemia Assessment & Plan: IV iron s/p PRBC transfusion GI w/u Status: Acute
== END 2018-01-14 20:00 | disposition home or self-care (01) | DRG 663 ==
LOC: C.ER 12:46 → C.9E 15:14 → C.5S 17:58
PROVIDERS: ADMIT Hospitalist; ATTEND Hospitalist
PROC: 0DB38ZX Excision of Lower Esophagus, Via Natural or Artificial Opening Endoscopic, Diagnostic (ICD-10-PCS; 2018-01-14)
PROC: 0DB68ZX Excision of Stomach, Via Natural or Artificial Opening Endoscopic, Diagnostic (ICD-10-PCS; 2018-01-14)
PROC: 30233N1 Transfusion of Nonautologous Red Blood Cells into Peripheral Vein, Percutaneous Approach (ICD-10-PCS; principal; 2018-01-14 14:20)
DX: D62 Acute posthemorrhagic anemia (principal); Q87.418 Marfan syndrome with other cardiovascular manifestations; K92.1 Melena; K44.9 Diaphragmatic hernia without obstruction or gangrene; G47.30 Sleep apnea, unspecified; I10 Essential (primary) hypertension; Z87.891 Personal history of nicotine dependence; K21.9 Gastro-esophageal reflux disease without esophagitis; I25.2 Old myocardial infarction; R13.10 Dysphagia, unspecified; K29.70 Gastritis, unspecified, without bleeding; K20.9 Esophagitis, unspecified